=== PATIENT | female | born 1940 | race Caucasian/White ===

== ENCOUNTER 2017-11-14 08:01 | Emergency (ER) | payer MEDICARE ==
[2017-11-14 08:43] VITALS: BP 123/43
--- NOTE | 2017-11-14 09:04 | UC ---
Complaint Female HPI - HPI Summary HPI Summary: Pt c/o sudden onset of urinary frequency, urgency and dysuria X 3 days. Pt takes cephalexin 250 mg PO daily for UTI preventative. - History Of Current Complaint Chief Complaint: UCGU Stated Complaint: URINARY Time Seen by Provider: 11/14/17 08:33 Hx Obtained From: Patient ?: No Onset/Duration: Sudden Onset, Lasting Days, Still Present Timing: Constant Severity Initially: Mild Severity Currently: Mild Pain Intensity: 5 Character: Dull, Burning Aggravating Factor(s): Urination Alleviating Factor(s): Nothing Associated Signs And Symptoms: Positive: Negative - Risk Factors Ectopic Risk Factor: Negative Ovarian Torsion Risk Factor: Negative - Allergies/Home Medications Allergies/Adverse Reactions: Allergies Allergy/AdvReac Type Severity Reaction Status Date / Time No Known Allergies Allergy Verified 11/14/17 08:32 Home Medications: Home Medications oxyCODONE/Acetamin 10/325(NF) [Percocet 10/325 (NF)] 1 tab PO Q4H PRN 11/14/17 [ History Confirmed 11/14/17] PMH/Surg Hx/FS Hx/Imm Hx Previously Healthy: Yes Endocrine History: Dyslipidemia Cardiovascular History: Cardiac Disease GI/ History: Gastroesophageal Reflux Psychological History: Anxiety - Surgical History Surgical History: Yes Surgery Procedure, Year, and Place: LAMINECTOMY. HYSTERECTOMY. GALL BLADDER. FEET SURGERY - Family History Known Family History: Positive: Hypertension, Diabetes - Social History Occupation: Retired Lives: With Family Alcohol Use: None Substance Use Type: None Smoking Status (MU): Never Smoked Tobacco Have You Smoked in the Last Year: No Review of Systems Constitutional: Negative Skin: Negative Eyes: Negative ENT: Negative Respiratory: Negative Cardiovascular: Negative Gastrointestinal: Negative Genitourinary: Dysuria, Frequency, Urgency Motor: Negative Neurovascular: Negative Musculoskeletal: Negative Neurological: Negative Psychological: Negative Is Patient Immunocompromised?: No All Other Systems Reviewed And Are Negative: Yes Physical Exam Triage Information Reviewed: Yes Appearance: Well-Appearing Vital Signs: Initial Vital Signs Temp 98.7 F 11/14/17 08:35 Pulse 65 11/14/17 08:35 Resp 20 11/14/17 08:35 BP 123/43 11/14/17 08:35 Pulse Ox 94 11/14/17 08:35 Vital Signs Reviewed: Yes Eye Exam: Normal ENT: Positive: Hearing grossly normal Respiratory Exam: Normal Respiratory: Positive: No respiratory distress Cardiovascular Exam: Normal Abdominal Exam: Normal Abdomen Description: Positive: Nontender Musculoskeletal Exam: Normal Neurological Exam: Normal Psychological Exam: Normal Skin Exam: Normal Complaint Female Dx - Differential Dx/Diagnosis Differential Diagnosis/HQI/PQRI: Urinary Tract Infection, Other - pyelonephritis Provider Diagnoses: UTI Discharge - Sign-Out/Discharge Documenting (check all that apply): Discharge - Discharge Plan Condition: Stable Disposition: HOME Prescriptions: Ciprofloxacin TAB* [Cipro 500 MG TAB*] 500 mg PO Q12H #10 tab Patient Education Materials: Urinary Tract Infection in Women (ED) Referrals: Laxmi Ruffin MD [Primary Care Provider] - If Needed Arden Meza MD [Medical Doctor] - If Needed - Billing Disposition and Condition Condition: STABLE Disposition: HOME
== END 2017-11-14 09:15 | disposition home or self-care (01) ==
LOC: UCCORT 08:01
DX: N39.0 Urinary tract infection, site not specified (principal)
CPT/HCPCS: 81003; 87077; 87086; 87186; 99212; G0463

== ENCOUNTER 2018-01-20 09:26 | Day surgery (SDC) | payer MEDICARE ==
[~2018-01-20 09:26] MED LIST: Buffered Lidocaine 0.9% SYRIN* 5 ML/SYR SYRINGE INTRADERM ONE; Dexamethasone TAB* 6 MG PO ONE; Famotidine IV* 10 MG/ML 2 ML (20 mg) IV ONE; Ondansetron INJ* 2 MG/ML VIAL ONE
[2018-01-20] MEDS ORDERED: fentaNYL* 50 MCG/ML 2 ML VIAL (100 MCG VIAL) ONE (11:55)
[2018-01-20] MEDS ORDERED: Midazolam* 1 MG/ML 2 ML VIAL (2 MG) ONE (11:59)
[2018-01-20] MEDS ORDERED: Lidocaine 2% PF * 5 ML VIAL ONE (12:00)
[2018-01-20] MEDS ORDERED: Propofol* 10 MG/ML 20 ML BTL IV PUSH ONE (12:00)
[2018-01-20] MEDS ORDERED: Naloxone* 0.4 MG/ML 1 ML VIAL IV PRN (12:33)
[2018-01-20 13:16] VITALS: BP 117/57
--- NOTE | 2018-01-23 03:45 | PRO ---
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 INDICATION: This 77-year-old woman has sporadic episodes of vomiting, chiefly after dinner. They scare her, and her appetite has diminished and she had lost some weight. She is a very disorganized historian initially. There has been no fever, dysphagia, or change in her bowels which are about every other day. She had an ulcer diagnosed six years ago at [facility]. At the time, she was taking lots of anti-inflammatories. She has been on pantoprazole ever since, taking it appropriately in the morning. Her daughter, Cammy Cazares, attends most all of her medical appointments. She takes aspirin for prophylaxis and never having had a thromboembolic event. She is on Duragesic and Protonix and Zoloft. COPD is listed on her problem list , but she appears quite comfortable and at ease, and it appears chronically very mild. ENDOSCOPIST: Dr. Bui. MEDICATIONS: Propofol per Dr. Parker in the OR. FINDINGS: She is a healthy appearing older woman, in no over distress at this time. Her abdomen is soft. EGD: Larynx - symmetric, limited views. Esophagus - easily entered and the mucosa is normal in the upper, mid, and lower esophagus with the EG junction at 37 without any erosions or scarring. There is a lavya-oc-heddpk hiatal hernia but again no scarring. Stomach - the distal half of the stomach has significant erythema and punctate erosions. There is some wispy blood loss points but no active bleeding. There is a patchy post inflammatory scarring appearance. The pylorus is wide open and dysfunctional. Duodenum - the bulb has a patchy irregularity from past scarring. There are many very fine arterials. The apex of the bulb is strictured and the diagnostic scope will not go through. Through the scope dilator, 10 to 12 mm was passed and threaded readily into the distal duodenum. A 10 mm dilation did not result in the ability to pass the scope but in 11 mm, 45 second dilation did. The scope was passed down three times easily. The procedure terminated. IMPRESSION: 1. Jfvoz-ng-afeulrzd hiatal hernia. 2. Clinical GERD - probably a component of her vomiting. 3. Gastritis - aspirin 81 mg could be contributing though her daughter is asked to survey the house for antiinflammatories and bring all her bottles to her followup appointment, 02/08/18 at 10:45. 4. 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 5. Nausea and vomiting events - she could have had plugging events in the stricture and she is asked to cut and chew her food more carefully, and her daughter received a detailed explanation. Ranitidine 150 will be added after dinner. [id number]/[facility] #: [id number] MTDD
== END 2018-01-20 13:18 | disposition home or self-care (01) ==
LOC: OR 09:26
PROVIDERS: ATTEND Internal Medicine Gastroenterology
DX: K21.9 Gastro-esophageal reflux disease without esophagitis (principal); K44.9 Diaphragmatic hernia without obstruction or gangrene; K29.70 Gastritis, unspecified, without bleeding; K31.5 Obstruction of duodenum; R11.2 Nausea with vomiting, unspecified; R63.4 Abnormal weight loss; I10 Essential (primary) hypertension
CPT/HCPCS: 87077; 88305; 88342; J2250; J2704; J3010

== ENCOUNTER 2018-02-02 09:08 | Emergency (ER) | payer MEDICARE ==
[2018-02-02 09:25] VITALS: BP 112/50
--- NOTE | 2018-02-02 10:18 | UC ---
Respiratory Complaint HPI - HPI Summary HPI Summary: The patient is a 77-year-old female that presents here with a greater than one week history of cough. Her cough is productive at times. She denies any chest pain or shortness of breath. She denies any fever or chills. She has been anorexic. She denies any nausea vomiting or diarrhea. - History of Current Complaint Chief Complaint: UCRespiratory Stated Complaint: COUGH,COLD SXS Time Seen by Provider: 02/02/18 09:58 Hx Obtained From: Patient Onset/Duration: Gradual Onset, Lasting Weeks Timing: Constant Severity Initially: Mild Severity Currently: Moderate Pain Intensity: 0 Pain Scale Used: 0-10 Numeric Character: Cough: Productive Aggravating Factors: Nothing Alleviating Factors: Nothing Associated Signs And Symptoms: Positive: Negative - Allergies/Home Medications Allergies/Adverse Reactions: Allergies Allergy/AdvReac Type Severity Reaction Status Date / Time No Known Allergies Allergy Verified 02/02/18 09:19 Home Medications: Home Medications Diphenhydram/PE/Dm/Acetamin/GG [Mucinex Fast-Max Day-Nite Liq] 360 ml PO BEDTIME PRN 02/02/18 [History Confirmed 02/02/18] Dm/PE/Acetaminophen/Chlorphenr [[place] Plus Cold &] 1 cap PO BID PRN 02/02 [History Confirmed 02/02/18] Guaifenesin/Pseudo 600/60(NF) [Mucinex D 600/60 (NF)] 1 tab PO BID PRN 02/02/18 [History Confirmed 02/02/18] raNITIdine HCl [Ranitidine HCl] 150 mg PO DAILY 02/02/18 [History Confirmed 12/16] PMH/Surg Hx/FS Hx/Imm Hx Previously Healthy: Yes Endocrine History: Diabetes Cardiovascular History: Hypertension - Surgical History Surgical History: Yes Surgery Procedure, Year, and Place: LAMINECTOMY. HYSTERECTOMY. GALL BLADDER. FEET SURGERY - Family History Known Family History: Positive: Hypertension, Diabetes - Social History Alcohol Use: None Substance Use Type: None Smoking Status (MU): Never Smoked Tobacco Have You Smoked in the Last Year: No Review of Systems Constitutional: Negative Skin: Negative Eyes: Negative ENT: Negative Respiratory: Cough Cardiovascular: Negative Gastrointestinal: Other - anorexia Genitourinary: Negative Motor: Negative Neurovascular: Negative Musculoskeletal: Negative Neurological: Negative Psychological: Negative Is Patient Immunocompromised?: No All Other Systems Reviewed And Are Negative: Yes Physical Exam Triage Information Reviewed: Yes Appearance: Well-Appearing, No Pain Distress, Well-Nourished Vital Signs: Initial Vital Signs Temp 98.6 F 02/02/18 09:20 Pulse 72 02/02/18 09:20 Resp 18 02/02/18 09:20 BP 112/50 02/02/18 09:20 Pulse Ox 95 02/02/18 09:20 Vital Signs Reviewed: Yes Eyes: Positive: Conjunctiva Clear ENT: Positive: Uvula midline. Negative: Hearing grossly normal, Nasal congestion, Nasal drainage, Tonsillar swelling, Tonsillar exudate, Trismus, Muffled voice, Hoarse voice Dental Exam: Normal Neck: Positive: Supple, Nontender, No Lymphadenopathy Respiratory: Positive: No respiratory distress, No accessory muscle use, Rhonchi , Wheezing - wioth forced expiration Cardiovascular: Positive: RRR. Negative: Tachycardia, Bradycardia Musculoskeletal: Positive: ROM Intact, No Edema Neurological: Positive: Alert Psychological Exam: Normal Skin Exam: Normal UC Diagnostic Evaluation - Laboratory O2 Sat by Pulse Oximetry: 95 - normal/not hypoxic - Radiology Xray Interpretation: No Acute Changes Radiology Interpretation Completed By: Radiologist Respiratory Course/Dx - Differential Dx/Diagnosis Provider Diagnoses: acute bronchitis Discharge - Sign-Out/Discharge Documenting (check all that apply): Discharge/Admit/Transfer - Discharge Plan Condition: Stable Disposition: HOME Referrals: Laxmi Ruffin MD [Primary Care Provider] - - Billing Disposition and Condition Condition: STABLE Disposition: Home
--- NOTE | 2018-02-02 10:31 | RAD ---
HISTORY: cough > 1 week COMPARISONS: None VIEWS: 4: Frontal dual-energy and lateral views of the chest. FINDINGS: CARDIOMEDIASTINAL SILHOUETTE: The cardiomediastinal silhouette is normal. GISEL: The gisel are normal. PLEURA: The costophrenic angles are sharp. No pleural abnormalities are noted. LUNG PARENCHYMA: The lungs are clear. ABDOMEN: The upper abdomen is clear. There is no subphrenic gas. BONES AND SOFT TISSUES: Degenerative changes are noted OTHER: None. IMPRESSION: NO ACTIVE CARDIOPULMONARY DISEASE.
== END 2018-02-02 10:47 | disposition home or self-care (01) ==
LOC: UCCORT 09:08
DX: J20.9 Acute bronchitis, unspecified (principal); E11.9 Type 2 diabetes mellitus without complications; I10 Essential (primary) hypertension
CPT/HCPCS: 71046; 99212; G0463

== ENCOUNTER 2018-08-03 10:15 | Emergency (ER) | payer MEDICARE ==
[2018-08-03] MEDS ORDERED: Morphine VIAL* 4 MG/ML VIAL (1 ml vial) IV ONE (12:25)
[2018-08-03] MEDS ORDERED: Ondansetron INJ* 2 MG/ML VIAL IV ONE (12:25)
[2018-08-03] MEDS ORDERED: NS 0.9% 1000 ML* 2,000 ML IV ONE (12:25)
[2018-08-03 12:50] LABS: ABS Basophils 0 10^3/ul (0-0.2); ABS Eosinophils 0.1 10^3/ul (0-0.6); ABS Lymphocytes 0.8 10^3/ul (1.0-4.8); ABS Monocytes 0.4 10^3/ul (0-0.8); ABS Neutrophils 3.9 10^3/ul (1.5-7.7); ABS Nucleated RBC 0 10^3/ul; Hematocrit 37 % (35-47); Hemoglobin 12.5 g/dl (12.0-16.0); Lymphocyte % 15.1 %; Mean Corpuscular HGB Conc 34 g/dl (31-36); Mean Corpuscular Hemoglobin 32 pg (27-31); Mean Corpuscular Volume 93 fL (80-97); Mean Platelet Volume 7.1 fL (7.4-10.4); Nucleated Red Blood Cells % 0; Platelet Count 313 10^3/ul (150-450); Red Blood Count 3.94 10^6/ul (4.00-5.40); Red Cell Distribution Width 13 % (10.5-15); White Blood Count 5.2 10^3/ul (3.5-10.8)
[2018-08-03 13:14] LABS: Albumin 4.4 g/dL (3.2-5.2); Albumin/Globulin Ratio 1.7 (1-3); BUN/Creatinine Ratio 25.9 (8-20); C Reactive Protein 1.83 mg/L (<8.01); Calcium 9.9 mg/dL (8.6-10.3); EGFR Non-African American 68.2 (>60); Globulin 2.6 g/dL (2-4); Potassium 3.5 mmol/L (3.5-5.0); Total Bilirubin 0.4 mg/dL (0.2-1.0)
--- NOTE | 2018-08-03 13:37 | ED ---
GI/ HPI - HPI Summary HPI Summary: 77-year-old female presents with nausea and vomiting for the past couple days. She states that she is not able to keep anything down. She also states that she has not been able to keep pain medication down. She states they have changed her pain medication from fentayl to a different medication. She denies any fevers. Denies any bowel pain. He states that she has history of UTIs and may be having one. She denies any flank pain. She states that her chronic back pain is worse. She denies any fevers. No sore throat. No chest pain or distress breath. No bowel pain. - History of Current Complaint Chief Complaint: EDNauseaVomitDiarrh Time Seen by Provider: 08/03/18 12:17 Stated Complaint: VOMITING Pain Intensity: 9 - Allergy/Home Medications Allergies/Adverse Reactions: Allergies Allergy/AdvReac Type Severity Reaction Status Date / Time No Known Allergies Allergy Verified 02/02/18 09:19 Home Medications: Home Medications Atorvastatin* [Lipitor*] 20 mg PO BEDTIME 08/03/18 [History Confirmed 08/03/18] Calcium Carbonate/Vitamin D3 [Calcium 600 + Vit D Tablet] 1 tab PO DAILY [History Confirmed 08/03/18] Morphine Sulfate/Naltrexone [[place] 30-1.2 mg] 1 cap PO Q12HR 08/03/18 [History Confirmed 08/03/18] oxyCODONE/Acetamin 10/325(NF) [Percocet 10/325 (NF)] 1 tab PO TID PRN MDD 3 tabs 08/03/18 [History Confirmed 08/03/18] PMH/Surg Hx/FS Hx/Imm Hx Endocrine/Hematology History: Reports: Hx Diabetes - DIET CONTROLLED Cardiovascular History: Reports: Hx Hypertension - controlled with meds, Other Cardiovascular Problems/Disorders - high cholesterol GI History: Reports: Hx Gastroesophageal Reflux Disease, Hx Ulcer - 4 years ago - resolved Musculoskeletal History: Reports: Hx Arthritis, Hx Rheumatoid Arthritis Sensory History: Reports: Hx Cataracts - mild cataracts both, Hx Contacts or Glasses Denies: Hx Hearing Aid Opthamlomology History: Reports: Hx Cataracts - mild cataracts both, Hx Contacts or Glasses Psychiatric History: Reports: Hx Anxiety - Cancer History Hx Chemotherapy: No - Surgical History Surgery Procedure, Year, and Place: LAMINECTOMY. HYSTERECTOMY. GALL BLADDER. FEET SURGERY Hx Anesthesia Reactions: No Infectious Disease History: No Infectious Disease History: Denies: Traveled Outside the [place] in Last 30 Days - Family History Known Family History: Positive: Hypertension, Diabetes - Social History Alcohol Use: None Substance Use Type: Reports: Prescribed Smoking Status (MU): Never Smoked Tobacco Have You Smoked in the Last Year: No Review of Systems Negative: Fever Negative: Chest Pain Negative: Shortness Of Breath Positive: Vomiting, Nausea. Negative: Abdominal Pain, Diarrhea All Other Systems Reviewed And Are Negative: Yes Physical Exam Triage Information Reviewed: Yes Vital Signs On Initial Exam: Initial Vitals Temp Pulse Resp BP Pulse Ox 99.9 F 63 16 140/51 100 08/03/18 10:15 08/03/18 10:15 08/03/18 10:15 08/03/18 10:15 08/03/18 10:15 Vital Signs Reviewed: Yes Appearance: Positive: Well-Appearing Skin: Positive: Warm, Dry Head/Face: Positive: Normal Head/Face Inspection Eyes: Positive: Normal, EOMI, JOANNA, Conjunctiva Clear ENT: Positive: Normal ENT inspection, Pharynx normal, TMs normal Respiratory/Lung Sounds: Positive: Clear to Auscultation, Breath Sounds Present Cardiovascular: Positive: Normal, RRR Abdomen Description: Positive: Nontender, Soft Bowel Sounds: Positive: Present Musculoskeletal: Positive: Normal Neurological: Positive: Normal Psychiatric: Positive: Normal Diagnostics - Vital Signs Vital Signs Temp Pulse Resp BP Pulse Ox 08/03/18 13:08 16 08/03/18 11:45 99.1 F 66 16 118/53 96 08/03/18 10:15 99.9 F 63 16 140/51 100 - Laboratory Lab Results: Lab Results 08/03/18 08/03/18 08/03/18 Range/Units 12:39 12:39 12:39 WBC 5.2 (3.5-10.8) 10^3/ul RBC 3.94 L (4.00-5.40) 10^6/ul Hgb 12.5 (12.0-16.0) g/dl Hct 37 (35-47) % MCV 93 (80-97) fL MCH 32 H (27-31) pg MCHC 34 (31-36) g/dl RDW 13 (10.5-15) % Plt Count 313 (150-450) 10^3/ul MPV 7.1 L (7.4-10.4) fL Neut % (Auto) 74.8 % Lymph % (Auto) 15.1 % [place] % (Auto) 8.3 % Eos % (Auto) 1.0 % Baso % (Auto) 0.8 % Absolute Neuts (auto) 3.9 (1.5-7.7) 10^3/ul Absolute Lymphs (auto) 0.8 L (1.0-4.8) 10^3/ul Absolute Monos (auto) 0.4 (0-0.8) 10^3/ul Absolute Eos (auto) 0.1 (0-0.6) 10^3/ul Absolute Basos (auto) 0 (0-0.2) 10^3/ul Absolute Nucleated RBC 0 10^3/ul Nucleated RBC % 0 Sodium 139 (135-145) mmol/L Potassium 3.5 (3.5-5.0) mmol/L Chloride 101 (101-111) mmol/L Carbon Dioxide 30 (22-32) mmol/L Anion Gap 8 (2-11) mmol/L BUN 21 (6-24) mg/dL Creatinine 0.81 (0.51-0.95) mg/dL Est GFR ( Amer) 82.5 (>60) Est GFR (Non-Af Amer) 68.2 (>60) BUN/Creatinine Ratio 25.9 H (8-20) Glucose 105 H (70-100) mg/dL Lactic Acid 1.0 (0.5-2.0) mmol/L Calcium 9.9 (8.6-10.3) mg/dL Total Bilirubin 0.40 (0.2-1.0) mg/dL AST 35 (13-39) U/L ALT 28 (7-52) U/L Alkaline Phosphatase 77 (34-104) U/L C-Reactive Protein 1.83 (<8.01) mg/L Total Protein 7.0 (6.4-8.9) g/dL Albumin 4.4 (3.2-5.2) g/dL Globulin 2.6 (2-4) g/dL Albumin/Globulin Ratio 1.7 (1-3) Lipase 10 L (11.0-82.0) U/L Result Diagrams: 08/03/18 12:39 08/03/18 12:39 Lab Statement: Any lab studies that have been ordered have been reviewed, and results considered in the medical decision making process. Re-Evaluation - Re-Evaluation First Eval Re-Evaluation Time: 13:40 Change: Improved Comment: no longer naueous Second Eval Re-Evaluation Time: 15:22 Change: Improved Comment: pain improved GIGU Course/Dx - Course Course Of Treatment: 77-year-old female presents with nausea and vomiting for the past couple days. She states that she is not able to keep anything down. She also states that she has not been able to keep pain medication down. She states they have changed her pain medication from fentayl to a different medication. She denies any fevers. Denies any bowel pain. He states that she has history of UTIs and may be having one. She denies any flank pain. She states that her chronic back pain is worse. She denies any fevers. No sore throat. No chest pain or distress breath. No bowel pain. On exam nontender abdomen. Lungs clear to auscultation. Labs without acute abnormality. Gave pain medication and Zofran feeling better. Urine may be a UTI so we'll treat with Macrobid. Symptoms are she likely due to opiate withdrawal. We'll prescribe Zofran for such. Patient understands and agrees with plan. - Diagnoses Differential Diagnoses - Female: Urinary Tract Infection, Vomiting, Other - opioid withdrawal Provider Diagnoses: Vomiting, UTI (urinary tract infection) Discharge - Sign-Out/Discharge Documenting (check all that apply): Patient Departure - Discharge Plan Condition: Good Disposition: HOME Prescriptions: Nitrofurantoin Monohyd/M-Cryst [Macrobid 100 mg Capsule] 100 mg PO BID #13 cap Ondansetron ODT TAB* [Zofran 4 MG Odt TAB*] 4 mg PO Q6H PRN #16 tab.odt PRN Reason: Nausea Patient Education Materials: Acute Nausea and Vomiting (ED) Referrals: Laxmi Ruffin MD [Primary Care Provider] - Additional Instructions: Take Macrobid twice a day for 7days, first dose given in ED take zofran every 6 hours as needed for nausea Drink plenty of fluids Follow up with primary in 7 days Return to ED if develop any new or worsening symptoms - Billing Disposition and Condition Condition: GOOD Disposition: Home
[2018-08-03] MEDS ORDERED: HYDROmorphone INJ* 2 MG/ML CARPUJECT SYRINGE IV SLOW PU ONE ×2 (13:39→13:40)
[2018-08-03] MEDS ORDERED: HYDROmorphone INJ* 0.5 MG/0.5 ML SYRINGE ONE (13:46)
[2018-08-03] MEDS ORDERED: HYDROmorphone INJ* 0.5 MG/0.5 ML SYRINGE IV SLOW PU ONE (13:49)
[2018-08-03 15:06] LABS: Urine Appearance Clear; Urine Bacteria Absent (Absent); Urine Bilirubin Negative (Negative); Urine Blood 1+ (Negative); Urine Color Yellow; Urine Glucose Negative (Negative); Urine Ketones Negative (Negative); Urine Nitrite Negative (Negative); Urine Protein Negative (Negative); Urine Red Blood Cell 1+(3-5/hpf) (Absent); Urine Specific Gravity 1.014 (1.010-1.030); Urine Urobilinogen Negative (Negative); Urine White Blood Cell Trace(0-5/hpf) (Absent)
[2018-08-03] MEDS ORDERED: Nitrofurantoin Macrocrystals* 100 MG CAP PO ONE (15:23)
[2018-08-03] MEDS ORDERED: O ndansetron ODT 4MG 5TAB PRPK 4 MG PAK PO ONE (15:24)
[2018-08-03] MEDS ORDERED: Ondansetron ODT TAB* 4 MG ONE (15:34)
[2018-08-03] MEDS ORDERED: Ondansetron ODT TAB* 4 MG SL PRN (15:35)
[2018-08-03 15:45] VITALS: BP 138/80
== END 2018-08-03 15:45 | disposition home or self-care (01) ==
LOC: ED 10:15
DX: N39.0 Urinary tract infection, site not specified (principal); R11.2 Nausea with vomiting, unspecified
CPT/HCPCS: 36415; 76775; 80053; 81003; 81015; 83605; 83690; 85025; 86140; 87086; 96374; 96375; 96376; 99282; A9270-GY; J1170; J2270; J2405

== ENCOUNTER 2019-05-13 08:29 | Emergency (ER) | payer MEDICARE ==
--- OUTSIDE RECORDS SUMMARY | 2019-05-13 08:42 | XMS REPORT | Continuity of Care Document ---
:1940 External Reference #:[id number] Author Name Michael Kimball DO, MPH Address [address] [place] [address], [address] [place] [address] Care Team Providers Name Role Phone Lawrence Alvarez V. 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 [phone] Practitioner Problems Description No Information Available Social History Type Date Description Comments Sex Unknown ETOH Use Denies alcohol use Tobacco Use Start: Unknown Patient has never smoked Recreational Drug Use Denies Drug Use Smoking Status Reviewed: 03/30/19 Patient has never smoked Allergies, Adverse Reactions, Alerts Description No Known Drug Allergies Medications Active Medications SIG Qnty Indications Ordering Date Provider Neurontin si by mouth 90caps Michael Kimball, 02/27/2019 100mg Capsules three times a DO, MPH day as directed chronic pain patient Alpha-Lipoic Acid take one capsule 90caps Michael Kimball, 01/02/2019 200mg by mouth every 8 DO, MPH Capsules hours as directed chronic pain. Pentoxifylline ER 1 by mouth every 90tabs Michael Kimball, 10/25/2018 400mg 8 hours DO, MPH Tablets ER Lisinopril-Hydrochloro 1 by mouth every Unknown thiazide day 10-12.5mg Tablets Atorvastatin Calcium 1 by mouth every Unknown 20mg day Tablets Ropinirole HCL 1 by mouth three 120tabs Unknown 0.5mg times a day Tablets Multivitamin Adult 1 by mouth every Unknown day Tablets Calcium 600+D 1 by mouth daily Unknown Tablets Vitamin D3 Ultra 1 by mouth every Unknown Strength day 5000Unit Capsules Cranberry 1 by mouth every Unknown 450mg Capsules day Probiotic Colon 1 by mouth every Unknown Support day Capsules History Medications Lyrica si by mouth 60caps Michael Kimball DO, 01/02/2019 - 75mg every 12 hours as MPH 02/27/2019 Capsules directed chronic pain patient Immunizations Description No Information Available Vital Signs Date Vital Result Comment 03/30/2019 9:26am BP Systolic 120 mmHg BP Diastolic 78 mmHg Heart Rate 74 /min Respiratory Rate 18 /min Height 60 inches 5'0" Weight 138.00 lb Pain Level 4 Pain at this time. Pain Level With Medicine 3 on average with meds Pain Level Without Medicine 9 without meds BMI (Body Mass Index) 26.9 kg/m2 02/27/2019 10:04am BP Systolic 126 mmHg BP Diastolic 70 mmHg Heart Rate 74 /min Respiratory Rate 20 /min Height 60 inches 5'0" Weight 138.00 lb Pain Level 6 Pain at this time. Pain Level With Medicine 6 on average with meds Pain Level Without Medicine 9 without meds BMI (Body Mass Index) 26.9 kg/m2 Results Description No Information Available Procedures Date Code Description Status 02/27/2019 20428 Therapeutic, Prophylactic Or Diagnostic Injection Subq/Im Completed 01/02/2019 84780 Therapeutic, Prophylactic Or Diagnostic Injection Subq/Im Completed 11/07/2018 48373 Test Autonomic Nervous System, Sudomotor Completed 11/07/2018 17669 Test Autonomic Nervous System, Cardiovagal Innervation Completed 10/25/2018 67208 Brief Emotional/Behav Assessment W/ Scoring Doc Per Completed Standard Inst Medical Devices Description No Information Available Encounters Type Date Location Provider Dx Diagnosis Office Visit 02/27/2019 Main Office as Of Michael Kimball DO, G89.29 Other chronic pain 9:45a 09/01/13 MPH M15.0 Primary generalized (osteo)arthritis M25.512 Pain in left shoulder M25.511 Pain in right shoulder R53.83 Other fatigue Z79.891 jail (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891 jail (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 R53.83 Other fatigue Office Visit 12/06/2018 9:30a Main Office as Michael Kimball G89.29 Other chronic Of 09/01/13 DO, MPH pain M15.0 Primary generalized (osteo)arthritis M25.511 Pain in right shoulder M25.512 Pain in left shoulder M79.641 Pain in right hand M79.642 Pain in left hand M79.604 Pain in right leg M79.605 Pain in left leg Z79.891 jail (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 nervous system Office Visit 11/07/2018 9:45a Main Office as Michael Kimball G89.29 Other chronic Of 09/01/13 DO, MPH pain M15.0 Primary generalized (osteo)arthritis M79.604 Pain in right leg M79.605 Pain in left leg M25.511 Pain in right shoulder M25.512 Pain in left shoulder M79.641 Pain in right hand M79.642 Pain in left hand 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 nervous system 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 Office Visit 10/25/2018 9:00a Main Office as Michael Kimball G89.29 Other chronic Of 09/01/13 DO, MPH pain M15.0 Primary generalized (osteo)arthritis M79.604 Pain in right leg M79.605 Pain in left leg M25.511 Pain in right shoulder M25.512 Pain in left shoulder M79.641 Pain in right hand M79.642 Pain in left hand Z13.31 Encounter for screening for depression Z79.891 jail (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 K21.9 Gastro-esophageal reflux disease without esophagitis G25.81 Restless legs syndrome M54.5 Low back pain F41.1 Generalized anxiety disorder M79.671 Pain in right foot M79.672 Pain in left foot M25.572 Pain in left ankle and joints of left foot M25.571 Pain in right ankle and joints of right foot Assessments Date Code Description Provider 03/30/2019 G89.29 Other chronic pain Kimball, Michael, DO, MPH 03/30/2019 M15.0 Primary generalized (osteo)arthritis Kimball, Michael, DO, MPH 03/30/2019 M25.511 Pain in right shoulder Kimball, Michael, DO, MPH 03/30/2019 M25.512 Pain in left shoulder Kimball, Michael, DO, MPH 03/30/2019 M79.641 Pain in right hand Kimball, Michael, DO, MPH 03/30/2019 M79.642 Pain in left hand Kimball, Michael, DO, MPH 03/30/2019 Z79.891 jail (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 Kimball, Michael , DO, MPH 03/30/2019 R53.83 Other fatigue Kimball, Michael, DO, MPH 02/27/2019 G89.29 Other chronic pain Kimball, Michael, DO, MPH 02/27/2019 M15.0 Primary generalized (osteo)arthritis Kimball, Michael, DO, MPH 02/27/2019 M25.512 Pain in left shoulder Kimball, Michael, DO, MPH 02/27/2019 M25.511 Pain in right shoulder Kimball, Michael, DO, MPH 02/27/2019 R53.83 Other fatigue Kimball, Michael, DO, MPH 02/27/2019 Z79.891 jail (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 Kimball, Michael , DO, MPH 01/31/2019 M15.0 Primary generalized (osteo)arthritis Kimball, Michael, DO, MPH 01/31/2019 M79.605 Pain in left leg Kimball, Michael, DO, MPH 01/31/2019 M79.604 Pain in right leg Kimball, Michael, DO, MPH 01/31/2019 M79.642 Pain in left hand Kimball, Michael, DO, MPH 01/31/2019 M79.641 Pain in right hand Kimball, Michael, DO, MPH 01/31/2019 M25.512 Pain in left shoulder Kimball, Michael, DO, MPH 01/31/2019 M25.511 Pain in right shoulder Kimball, Michael, DO, MPH 01/31/2019 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 Kimball, Michael , DO, MPH 01/02/2019 G89.29 Other chronic pain Kimball, Michael, DO, MPH 01/02/2019 M15.0 Primary generalized (osteo)arthritis Kimball, Michael, DO, MPH 01/02/2019 M79.641 Pain in right hand Kimball, Michael, DO, MPH 01/02/2019 M79.642 Pain in left hand Kimball, Michael, DO, MPH 01/02/2019 M79.604 Pain in right leg Kimball, Michael, DO, MPH 01/02/2019 M79.605 Pain in left leg Kimball, Michael, DO, MPH 01/02/2019 Z79.891 jail (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 Kimball, Michael , DO, MPH 01/02/2019 R53.83 Other fatigue Kimball, Michael, DO, MPH 12/06/2018 G89.29 Other chronic pain Kimball, Michael, DO, MPH 12/06/2018 M15.0 Primary generalized (osteo)arthritis Kimball, Michael, DO, MPH 12/06/2018 M25.511 Pain in right shoulder Kimball, Michael, DO, MPH 12/06/2018 M25.512 Pain in left shoulder Kimball, Michael, DO, MPH 12/06/2018 M79.641 Pain in right hand Kimball, Michael, DO, MPH 12/06/2018 M79.642 Pain in left hand Kimball, Michael, DO, MPH 12/06/2018 M79.604 Pain in right leg Kimball, Michael, DO, MPH 12/06/2018 M79.605 Pain in left leg Kimball, Michael, DO, MPH 12/06/2018 Z79.891 jail (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 Kimball, Michael , DO, MPH 12/06/2018 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 Kimball, Michael, DO , MPH nervous system 11/07/2018 G89.29 Other chronic pain Kimball, Michael, DO, MPH 11/07/2018 M15.0 Primary generalized (osteo)arthritis Kimball, Michael, DO, MPH 11/07/2018 M79.604 Pain in right leg Kimball, Michael, DO, MPH 11/07/2018 M79.605 Pain in left leg Kimball, Michael, DO, MPH 11/07/2018 M25.511 Pain in right shoulder Kimball, Michael, DO, MPH 11/07/2018 M25.512 Pain in left shoulder Kimball, Michael, DO, MPH 11/07/2018 M79.641 Pain in right hand Kimball, Michael, DO, MPH 11/07/2018 M79.642 Pain in left hand Kimball, Michael, DO, MPH 11/07/2018 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 Kimball, Michael, DO , MPH nervous system 11/07/2018 Z79.891 jail (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 Kimball, Michael , DO, MPH 10/25/2018 G89.29 Other chronic pain Kimball, Michael, DO, MPH 10/25/2018 M15.0 Primary generalized (osteo)arthritis Kimball, Michael, DO, MPH 10/25/2018 M79.604 Pain in right leg Kimball, Michael, DO, MPH 10/25/2018 M79.605 Pain in left leg Kimball, Michael, DO, MPH 10/25/2018 M25.511 Pain in right shoulder Kimball, Michael, DO, MPH 10/25/2018 M25.512 Pain in left shoulder Kimball, Michael, DO, MPH 10/25/2018 M79.641 Pain in right hand Kimball, Michael, DO, MPH 10/25/2018 M79.642 Pain in left hand Kimball, Michael, DO, MPH 10/25/2018 Z13.31 Encounter for screening for depression Michael Kimball DO MPH 10/25/2018 Z79.891 jail (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 Michael Kimball DO MPH 10/25/2018 K21.9 Gastro-esophageal reflux disease without Michael Kimball DO MPH esophagitis 10/25/2018 G25.81 Restless legs syndrome Michael Kimball DO MPH 10/25/2018 M54.5 Low back pain Michael Kimball DO MPH 10/25/2018 F41.1 Generalized anxiety disorder Michael Kimball DO MPH 10/25/2018 M79.671 Pain in right foot iMchael Kimball DO MPH 10/25/2018 M79.672 Pain in left foot Michael Kimball DO MPH 10/25/2018 M25.572 Pain in left ankle and joints of left foot Michael Kimball DO MPH 10/25/2018 M25.571 Pain in right ankle and joints of right foot Michael Kimball DO MPH Plan of Treatment Future Appointment(s):04/27/2019 10:15 am - Michael Kimball DO MPH at Main Office as Of 09/01/1407 - Michael Kimball DO, MPHG89.29 Other chronic painComments:Chronic. Symptoms and complaints discussed and reviewed today. No significant changes in physical findings. Continue current medical pain management.M15.0 Primary generalized (osteo)arthritisComments:Chronic. Symptoms and complaints discussed and reviewed today. No significant changes in physical findings. Continue current medical pain management.M25.511 Pain in right shoulderComments:Chronic. Symptoms and complaints discussed and reviewed today. No significant changes in physical findings. Continue current medical pain management.M25.512 Pain in left shoulderComments:Chronic. Symptoms and complaints discussed and reviewed today. No significant changes in physical findings. Continue current medical pain management.M79.641 Pain in right handComments:Chronic. Symptoms and complaints discussed and reviewed today. No significant changes in physical findings. Continue current medical pain management.M79.642 Pain in left handComments:Chronic. Symptoms and complaints discussed and reviewed today. No significant changes in physical findings. Continue current medical pain management.Z79.891 jail (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New Labs:Urine Drug Screen, Ordered: 03/30/19Comments:Urine drug screen sample taken today to monitor opiate use and to monitor use of illicit substances.Will discuss results at next appointment.The following tests were ordered:6 AM, AMPH, BROOKLYNN, NAA, BUP, CARIS, COCM, COT, ETG, FENT, MCSHSG, OPI, OXY, PCP, TAPEN, XTSY, ZOLP. A urine drug test (UDT) was ordered for this patient and collected on site today. Creatinine has been ordered as well for specimen validity, not for kidney function. Preliminary UDT results are not final and should not be used to determine patient care or plan of treatment. Initially a qualitative immunoassay screen will be done. Any inconsistent or positive findings will be further tested with a more comprehensive quantitative confirmation LCMS study. It is part of the treatment process of prescribing controlled substances and is considered standard of care.R53.83 Other fatigueComments:Symptoms and complaints discussed and reviewed today. No significant changes in physical findings. Continue current medical pain management. B12 injection administered after patient evaluated. 1ml IM for fatigue. (See Consent for injection-B12 document for lot number and expiration date.)AllComments:Continue current medical pain management; injection therapy, osteopathic manipulation, PT / modalities, and consults as needed to manage chronic pain.Non - opioid pain management discussed and optionsdiscussed.Side effects discussed; anticipatory guidance given. Patient clearly understand and agree with all medical treatments and suggestions. All medicines prescribed are adequate and appropriate for this patient's complaint of pain, medical history, physical, and personal goals.Goals of Treatment are to provide adequate and appropriate multidisciplinary medical pain management to increase/ maintain patient's quality of life and functionality while maintaining satisfactory side effect profile andminimizing supervisor intermediates end-organ damage. Importance of regular nutrition throughout the day discussed.Activity as toleratedContinue with PCP Functional Status Description No Information Available Mental Status Description No Information Available Referrals Refer to Reason for Referral Status Appt Date Irving Santos M.D. Please evaluate pain in her bilateral Scheduled 11/21/2018 [address]. [address] [place] [address] [phone]
--- OUTSIDE RECORDS SUMMARY | 2019-05-13 08:42 | XMS REPORT | Continuity of Care Document ---
:1940 External Reference #:[id number] Author Name Michael Kimball DO, MPH Address [address] [place] [address], [address] [place] [address] Care Team Providers Name Role Phone Lawrence Alvarez V. UNIT MANAGER [employer]IENCE [employer]ORES - Nurse Care Team Information Management Internship [phone] Practitioner Problems Description No Information Available Social History Type Date Description Comments Sex Unknown ETOH Use Denies alcohol use Tobacco Use Start: Unknown Patient has never smoked Recreational Drug Use Denies Drug Use Smoking Status Reviewed: 05/01/19 Patient has never smoked Allergies, Adverse Reactions, [...] by mouth every Unknown Support day Capsules Milk Thistle Unknown 140mg Capsules History Medications Lyrica si by mouth 60caps Michael Kimball DO, 01/02/2019 - 75mg every 12 hours as MPH 02/27/2019 Capsules directed chronic pain patient Immunizations Description No Information Available Vital Signs Date Vital Result Comment 05/01/2019 10:09am BP Systolic 120 mmHg BP Diastolic 70 mmHg Heart Rate 74 /min Respiratory Rate 20 /min Height 60 inches 5'0" Weight 136.00 lb Pain Level 4 Pain at this time. Pain Level With Medicine 3 on average with meds Pain Level Without Medicine 9 without meds BMI (Body Mass Index) 26.6 kg/m2 03/30/2019 9:26am BP Systolic 120 mmHg BP Diastolic 78 mmHg Heart Rate 74 /min Respiratory Rate 18 /min Height 60 inches 5'0" Weight 138.00 lb Pain Level 4 Pain at this time. Pain Level With Medicine 3 on average with meds Pain Level Without Medicine 9 without meds BMI (Body Mass Index) 26.9 kg/m2 Procedures Date Code Description Status 03/30/2019 33261 Therapeutic, Prophylactic Or Diagnostic Injection Subq/Im Completed 02/27/2019 58387 Therapeutic, Prophylactic Or Diagnostic Injection Subq/Im Completed 01/02/2019 03131 Therapeutic, Prophylactic Or Diagnostic Injection Subq/Im Completed 11/07/2018 39932 Test Autonomic Nervous System, Sudomotor Completed 11/07/2018 88945 Test Autonomic Nervous System, Cardiovagal Innervation Completed Medical Devices Description No Information Available Encounters Type Date Location Provider Dx Diagnosis Office Visit 03/30/2019 Main Office as Of Michael Kimball DO G89.29 Other chronic pain 9:30a 09/01/13 MPH M15.0 Primary generalized (osteo)arthritis M25.511 Pain in right shoulder M25.512 Pain in left shoulder M79.641 Pain in right hand M79.642 Pain in left hand 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 R53.83 Other fatigue Office Visit 02/27/2019 9:45a Main Office as Michael Kimball G89.29 Other chronic Of 09/01/13 , MPH pain M15.0 Primary generalized (osteo)arthritis M25.512 Pain in left shoulder M25.511 Pain in right shoulder R53.83 Other fatigue 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 Office Visit 01/31/2019 9:45a Main Office Michael Kimball, M15.0 Primary generalized as Of 09/01/13 DO, MPH (osteo)arthritis M79.605 Pain in left leg M79.604 Pain in right leg M79.642 Pain in left hand M79.641 Pain in right hand M25.512 Pain in left shoulder M25.511 Pain in right shoulder Z79.891 longterm (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 Office Visit 01/02/2019 9:15a Main Office as Michael Kimball, G89.29 Other chronic Of 09/01/13 DO, MPH pain M15.0 Primary generalized (osteo)arthritis M79.641 Pain in right hand M79.642 Pain in left hand M79.604 Pain in right leg M79.605 Pain in left leg Z79.891 longterm (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 R53.83 Other fatigue Office Visit 12/06/2018 9:30a Main Office as Michael Kimball, G89.29 Other chronic Of 09/01/13 DO, MPH pain M15.0 Primary generalized (osteo)arthritis M25.511 Pain in right shoulder M25.512 Pain in left shoulder M79.641 Pain in right hand M79.642 Pain in left hand M79.604 Pain in right leg M79.605 Pain in left leg 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 nervous system Office Visit 11/07/2018 9:45a Main Office as Michael Kimball, G89.29 Other chronic Of 09/01/13 DO, MPH pain M15.0 Primary generalized (osteo)arthritis M79.604 Pain in right leg M79.605 Pain in left leg M25.511 Pain in right shoulder M25.512 Pain in left shoulder M79.641 Pain in right hand M79.642 Pain in left hand 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 nervous system Z79.891 longterm (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 Assessments Date Code Description Provider 05/01/2019 M15.0 Primary generalized (osteo)arthritis Kimball, Michael, DO, MPH 05/01/2019 M79.641 Pain in right hand Kimball, Michael, DO, MPH 05/01/2019 M79.642 Pain in left hand Kimball, Michael, DO, MPH 05/01/2019 M25.512 Pain in left shoulder Kimball, Michael, DO, MPH 05/01/2019 M25.511 Pain in right shoulder Kimball, Michael, DO, MPH 05/01/2019 Z79.891 longterm (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 Kimball, Michael , DO, MPH 05/01/2019 R53.83 Other fatigue Kimball, Michael, DO, MPH 03/30/2019 G89.29 Other chronic pain Kimball, Michael, DO, MPH 03/30/2019 M15.0 Primary generalized (osteo)arthritis Kimball, Michael, DO, MPH 03/30/2019 M25.511 Pain in right shoulder Kimball, Michael, DO, MPH 03/30/2019 M25.512 Pain in left shoulder Kimball, Michael, DO, MPH 03/30/2019 M79.641 Pain in right hand Kimball, Michael, DO, MPH 03/30/2019 M79.642 Pain in left hand Kimball, Michael, DO, MPH 03/30/2019 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 Kimball, Michael [...] fatigue Kimball, Michael, DO, MPH 02/27/2019 Z79.891 longterm (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 Kimball, Michael [...] shoulder Kimball, Michael, DO, MPH 01/31/2019 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 Kimball, Michael [...] leg Kimball, Michael, DO, MPH 01/02/2019 Z79.891 longterm (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 Kimball, Michael [...] leg Kimball, Michael, DO, MPH 12/06/2018 Z79.891 longterm (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 KimballWilliam chandraph , DO, MPH 12/06/2018 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 Kimball, Michael, DO , MPH nervous system 11/07/2018 G89.29 Other chronic pain KimballMichael chandra, DO, MPH 11/07/2018 M15.0 Primary generalized (osteo)arthritis KimballMichael chandra DO, MPH 11/07/2018 M79.604 Pain in right [...] 11/07/2018 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 Michael Kimball DO , MPH nervous system 11/07/2018 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 Symptoms and complaints discussed and reviewed today. [...] physical findings. Continue current medical pain management.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New Labs:Urine Drug Screen, Ordered: 05/01/19Comments:Urine drug screen sample taken today to monitor [...] while maintaining satisfactory side effect profile andminimizing daycare worker end-organ damage. Importance of regular nutrition throughout the day discussed.Activity as toleratedContinue with PCP Functional Status Description No Information Available Mental Status Description No Information Available Referrals Description No Information Available
--- OUTSIDE RECORDS SUMMARY | 2019-05-13 08:42 | XMS REPORT | Continuity of Care Document ---
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 [phone] Problems Active Problems Provider Date Essential hypertension Alfreda Jerry PA-C Onset: 10/14/2017 Weight decreased Alfreda Jerry PA-C Onset: 12/27/2017 Gastroesophageal reflux disease Alfreda Jerry PA-C Onset: 12/27/2017 Slow transit constipation Alfreda Jerry PA-C Onset: 10/11/2017 Nausea and vomiting Alfreda Jerry PA-C Onset: 10/11/2017 Social History Type Date Description Comments Sex Unknown Tobacco Use Start: Unknown Patient has never smoked Smoking Status Reviewed: 04/17/19 Patient has never smoked Allergies, Adverse Reactions, Alerts Description No Known Drug Allergies Medications Active Medications SIG Qnty Indications Ordering Date Provider Pantoprazole Sodium Take 1 Tablet 180tabs R11.2 Reed Ned, 09/28/2018 40mg By Mouth Twice DO Tablets DR Daily(30 Minutes Before Meal)- Maximum Daily Dose Is 2 Tablets Atorvastatin Calcium take one tablet 90tabs Laxmi Ruffin, 06/20/2016 40mg by mouth at MD Tablets bedtime Ondansetron HCL 1 by mouth 30tabs Laxmi Ruffin, 11/14/2015 8mg Tablets three times a MD day as needed nausea Oxycodone-Acetaminophen 1 by mouth 150tabs Laxmi Ruffin, 01/22/2015 every 4h as MD 10-325mg Tablets needed for mod. to severe pain Reference #: [id number] Clonazepam 1 by mouth 60tabs Laxmi Ruffin, 0.5mg Tablets 2x/day as MD needed for restless legs or anxiety Reference #: [id number] Zolpidem Tartrate 1 by mouth 30tabs Laxmi Ruffin, 10mg Tablets every night as MD needed for insomnia erence #: [id number] Polyethylene Glycol 3350 use 17 grams in 527units Laxmi Ruffin, 3350NF fluid at MD Powder bedtime Hydrochlorothiazide Take One Tablet 90tabs Laxmi Ruffin, 25mg By Mouth Every MD Tablets Morning Lisinopril Take One Tablet 90tabs Laxmi Ruffin, 5mg Tablets By Mouth Every MD Day Sertraline HCL Take One Tablet 90tabs Laxmi Ruffin, 100mg Tablets By Mouth Every MD Day Vitamin D-400 Unknown 400Unit Tablets Senior Vitamin Unknown Embeda 1 by mouth Unknown 30-1.2mg Capsules ER twice a day Immunizations Description No Information Available Vital Signs Date Vital Result Comment 04/17/2019 9:30am Height 59 inches 4'11" Weight 127.00 lb BP Systolic 135 mmHg BP Diastolic 65 mmHg Heart Rate 66 /min BMI (Body Mass Index) 25.6 kg/m2 11/16/2018 9:56am Height 59 inches 4'11" Weight 125.00 lb BP Systolic 122 mmHg BP Diastolic 63 mmHg Heart Rate 62 /min BMI (Body Mass Index) 25.2 kg/m2 Results Description No Information Available Procedures Description No Information Available Medical Devices Description No Information Available Encounters Type Date Location Provider Dx Diagnosis Office Visit 11/16/2018 [facility] Alfreda Loera K21.9 [facility] Benji Jerry PA-C reflux disease without esophagitis R11.2 Nausea with vomiting, unspecified Assessments Date Code Description Provider 04/17/2019 R11.2 Nausea with vomiting, unspecified DARYN Owusu 11/16/2018 K21.9 Gastro-esophageal reflux disease without Alfreda Jerry PA-C esophagitis 11/16/2018 R11.2 Nausea with vomiting, unspecified DARYN Owusu Plan of Treatment No Information Available Functional Status Description No Information Available Mental Status Description No Information Available Referrals Description No Information Available
[2019-05-13 08:51] VITALS: BP 116/57
--- NOTE | 2019-05-13 09:14 | UC ---
Complaint Female HPI - HPI Summary HPI Summary: Pt presents with c/o sudden onset urinary symptoms of frequency, urgency, dysuria X 4 days. Pt also states that she has been feeling like she is a little "foggy". - History Of Current Complaint Stated Complaint: UTI SYMPTOMS Time Seen by Provider: 05/13/19 08:33 Hx Obtained From: Patient ?: No Onset/Duration: Sudden Onset, Lasting Days, Still Present Timing: Constant Severity Initially: Mild Severity Currently: Mild Pain Intensity: 5 Character: Dull, Burning Aggravating Factor(s): Urination Associated Signs And Symptoms: Positive: Back Pain - Risk Factors Ectopic Risk Factor: Negative Ovarian Torsion Risk Factor: Negative - Allergies/Home Medications Allergies/Adverse Reactions: Allergies Allergy/AdvReac Type Severity Reaction Status Date / Time No Known Allergies Allergy Verified 05/13/19 08:45 Home Medications: Home Medications Morphine Sulfate/Naltrexone [Embeda ER 30-1.2 mg Capsule] 1 cap PO Q12H [History Confirmed 05/13/19] PMH/Surg Hx/FS Hx/Imm Hx Previously Healthy: Yes Endocrine History: Dyslipidemia Cardiovascular History: Cardiac Disease, Hypertension - Surgical History Surgical History: Yes Surgery Procedure, Year, and Place: LAMINECTOMY. HYSTERECTOMY. GALL BLADDER. FEET SURGERY - Family History Known Family History: Positive: Hypertension, Diabetes - Social History Occupation: Retired Lives: Alone Alcohol Use: None Substance Use Type: Prescribed Smoking Status (MU): Never Smoked Tobacco Have You Smoked in the Last Year: No Review of Systems All Other Systems Reviewed And Are Negative: Yes Constitutional: Positive: Negative Skin: Positive: Negative Eyes: Positive: Negative ENT: Positive: Negative Respiratory: Positive: Negative Cardiovascular: Positive: Negative Gastrointestinal: Positive: Negative Genitourinary: Positive: Dysuria, Frequency, Urgency Motor: Positive: Negative Neurovascular: Positive: Negative Musculoskeletal: Positive: Negative Neurological: Positive: Negative Psychological: Positive: Negative Is Patient Immunocompromised?: No Physical Exam Triage Information Reviewed: Yes Appearance: Well-Appearing Vital Signs: Initial Vital Signs Temp 98.6 F 05/13/19 08:42 Pulse 64 05/13/19 08:42 Resp 16 05/13/19 08:42 BP 116/57 05/13/19 08:42 Pulse Ox 95 05/13/19 08:42 Vital Signs Reviewed: Yes Eye Exam: Normal ENT: Positive: Hearing grossly normal Dental Exam: Normal Neck exam: Normal Respiratory Exam: Normal Respiratory: Positive: Normal breath sounds Cardiovascular Exam: Normal Abdominal Exam: Normal Abdomen Description: Positive: Nontender Musculoskeletal Exam: Normal Neurological Exam: Normal Psychological Exam: Normal Skin Exam: Normal Complaint Female Dx - Differential Dx/Diagnosis Differential Diagnosis/HQI/PQRI: Urinary Tract Infection Provider Diagnosis: UTI (urinary tract infection) Discharge ED - Sign-Out/Discharge Documenting (check all that apply): Patient Departure All imaging exams completed and their final reports reviewed: No Studies - Discharge Plan Condition: Stable Disposition: HOME Prescriptions: Nitrofurantoin Monohyd/M-Cryst [Macrobid 100 mg Capsule] 100 mg PO Q12H #14 cap Patient Education Materials: Urinary Tract Infection in Women (ED) Referrals: Laxmi Ruffin MD [Primary Care Provider] - If Needed - Billing Disposition and Condition Condition: STABLE Disposition: Home
== END 2019-05-13 09:19 | disposition home or self-care (01) ==
LOC: UCCORT 08:29
DX: N39.0 Urinary tract infection, site not specified (principal); I10 Essential (primary) hypertension
CPT/HCPCS: 81003; 87077; 87086; 87186; 99212; G0463

== ENCOUNTER 2019-08-09 08:29 | Inpatient (IN) | payer MEDICARE ==
--- NOTE | 2019-08-09 08:37 | ED ---
Abdominal Pain/Female - HPI Summary HPI Summary: 78-year-old female presents to the emergency department today complaining of 9 out of 10 during pain which she states she's had for months and has been diagnosed with an inguinal hernia. Patient states the last 2 weeks she is no longer been able to reduce her inguinal hernia and it has grown in size. Patient also states she's had increase in pain and distention of her abdomen as well as constipation x 1 month, last bowel movement was 3 days ago. Patient states she has an appointment with Dr. Hamm is to address her hernia however she came to the emergency department stay as she was in too much pain to wait. Patient has taken oral morphine and oxycodone prior to arrival for her chronic pain. Patient denies nausea, vomiting, fever, chest pain, shortness of breath, rash. Family history and social history noncontributory. - History of Current Complaint Chief Complaint: EDAbdPain Stated Complaint: LOWER ABD PAIN PER PT DAUGHTER Time Seen by Provider: 08/09/19 08:36 Hx Obtained From: Patient Onset/Duration: Gradual Onset Timing: Constant Severity Initially: Severe Severity Currently: Severe Pain Intensity: 10 Pain Scale Used: 0-10 Numeric Location: Suprapubic Allergies/Adverse Reactions: Allergies Allergy/AdvReac Type Severity Reaction Status Date / Time No Known Allergies Allergy Verified 08/09/19 09:01 Home Medications: Home Medications Bisacodyl EC TAB* [Dulcolax EC TAB*] 5 mg PO DAILY PRN 08/09/19 [History Confirmed 08/09/19] Morphine Sulfate [Morphabond ER] 30 mg PO BID 08/09/19 [History Confirmed ] PMH/Surg Hx/FS Hx/Imm Hx Endocrine/Hematology History: Reports: Hx Diabetes - Diet Controlled Cardiovascular History: Reports: Hx Hypertension, Other Cardiovascular Problems/ Disorders - high cholesterol GI History: Reports: Hx Gastroesophageal Reflux Disease, Hx Ulcer - 2013 Musculoskeletal History: Reports: Hx Arthritis, Hx Rheumatoid Arthritis Sensory History: Reports: Hx Cataracts - mild cataracts both, Hx Contacts or Glasses Denies: Hx Hearing Aid Opthamlomology History: Reports: Hx Cataracts - mild cataracts both, Hx Contacts or Glasses Psychiatric History: Reports: Hx Anxiety - Cancer History Hx Chemotherapy: No - Surgical History Surgery Procedure, Year, and Place: LAMINECTOMY. HYSTERECTOMY. GALL BLADDER. FEET SURGERY Hx Anesthesia Reactions: No Infectious Disease History: No Infectious Disease History: Denies: Traveled Outside the [place] in Last 30 Days - Family History Known Family History: Positive: Hypertension, Diabetes - Social History Alcohol Use: None Substance Use Type: Reports: Prescribed Smoking Status (MU): Never Smoked Tobacco Have You Smoked in the Last Year: No Review of Systems Constitutional: Negative Eyes: Negative ENT: Negative Cardiovascular: Negative Respiratory: Negative Positive: Abdominal Pain. Negative: Vomiting, Diarrhea, Nausea Genitourinary: Negative Musculoskeletal: Negative Skin: Negative Neurological: Negative Psychological: Normal All Other Systems Reviewed And Are Negative: Yes Physical Exam - Summary Physical Exam Summary: Inspection reveals a Large mildly erythematous left inguinal hernia. Auscultation reveals normoactive bowel sounds. Palpation of the abdomen illicits mild diffuse tenderness. Inguinal hernia is unable to be reduced. palpation on the hernia is exquisitely painful. Triage Information Reviewed: Yes Vital Signs On Initial Exam: Initial Vitals Temp Pulse Resp BP Pulse Ox 98.7 F 78 18 141/65 92 08/09/19 08:29 08/09/19 08:29 08/09/19 08:29 08/09/19 08:29 08/09/19 08:29 Vital Signs Reviewed: Yes Appearance: Positive: Well-Appearing, No Pain Distress, Well-Nourished Skin: Positive: Warm, Skin Color Reflects Adequate Perfusion Eyes: Positive: EOMI, JOANNA ENT: Positive: Hearing grossly normal Respiratory/Lung Sounds: Positive: Clear to Auscultation, Breath Sounds Present Cardiovascular: Positive: RRR, S1, S2 Abdomen Description: Positive: Soft, Hernia @ - Left inguinal. Negative: Distended, Guarding Bowel Sounds: Positive: Present Musculoskeletal: Positive: Strength/ROM Intact Neurological: Positive: Sensory/Motor Intact, Alert, Oriented to Person Place, Time, Normal Gait, Facial Symmetry, Speech Normal Psychiatric: Positive: Normal, Affect/Mood Appropriate AVPU Assessment: Alert Procedures - Sedation Patient Received Moderate/Deep Sedation with Procedure: No Diagnostics - Vital Signs Vital Signs Temp Pulse Resp BP Pulse Ox 08/09/19 08:29 98.7 F 78 18 141/65 92 - Laboratory Result Diagrams: 08/09/19 09:06 08/09/19 09:06 Lab Statement: Any lab studies that have been ordered have been reviewed, and results considered in the medical decision making process. Abdominal Pain Fem Course/Dx - Course Course Of Treatment: Patient was evaluated in the emergency department today for a possible strangulated hernia. Patient was seen and examined her vitals are stable and she is afebrile. Laboratory studies show a white count 11.0 indicating a leukocytosis. There are no significant electrolyte abnormalities. BUN is elevated at 35 likely due to dehydration. No rise in creatinine. Lactic acid is 1.0 not suggestive of bowel ischemia from strangulated hernia. General surgery, Dr. Diane was consulted at 1001 and was made aware of the patient, who suggested geting an EKG in the event of surgery being required. EKG shows normal sinus rhythm at a rate of 69 bpm. There is evidence of APCs. No evidence of STEMI. There is T-wave inversion in leads 3. Normal axis. Pt given 50 mcg fentanyl and reduction was attempted by ER staff and surgical staff without success at 1051. Surgical staff felt pateint needed reduction in the OR. CT scan of the abdomen and pelvis shows: 1. THERE IS LARGE AMOUNT OF STOOL THROUGHOUT THE COLON EXTENDING TO THE LEVEL OF A LEFT INGUINAL HERNIA CONTAINING PORTIONS OF SIGMOID COLON, CONCERNING FOR COLONIC OBSTRUCTION AT THIS POINT. 2. THERE IS EXTENSIVE BILIARY DILATATION EXTENDING TO THE LEVEL OF THE AMPULLA. THERE IS NO APPRECIABLE PANCREATIC MASS OR PANCREATIC DUCTAL DILATATION. 3. THERE IS A COMPLEX CYSTIC LESION OF THE RIGHT INTERNAL OBTURATOR MUSCLE OF UNCLEAR ETIOLOGY. RECOMMEND CONSIDERATION FURTHER EVALUATION WITH CONTRAST-ENHANCED MRI OF THE PELVIS IN THE NONACUTE SETTING. 4. CYSTOCELE. 5. ATHEROSCLEROSIS. Surgery notified. Pt brought to OR for reduction of incarcerated left inguinal hernia with bowel obstruction. - Diagnoses Differential Diagnosis: Positive: Bowel Obstruction, Constipation, Other - hernia, incarcerated hernia, strangulated hernia Provider Diagnoses: Incarcerated left inguinal hernia - Provider Notifications Discussed Care Of Patient With: Jose Alfredo Diane - Admit for surgery of left incarcerated inguinal hernia. Discharge ED - Sign-Out/Discharge Documenting (check all that apply): Patient Departure - Discharge Plan Condition: Stable Disposition: ADMITTED TO [facility] Referrals: Laxmi Ruffin MD [Primary Care Provider] - - Billing Disposition and Condition Condition: STABLE Disposition: Admitted to [facility] - Attestation Statements Provider Attestation: I have seen the patient with the LETI and agree with the plan and documentation below except as noted: 78-year-old female with history of left inguinal hernia presents with worsening pain. Exam w tender and erythematous swelling over the left side pubis symphysis/inguinal now. Concern for incarcerated hernia. Surgery consult, CT ordered Mauri Sneed MD
[2019-08-09 09:17] LABS: ABS Basophils 0.1 10^3/ul (0-0.2); ABS Eosinophils 0.1 10^3/ul (0-0.6); ABS Lymphocytes 0.6 10^3/ul (1.0-4.8); ABS Monocytes 0.7 10^3/ul (0-0.8); ABS Neutrophils 9.5 10^3/ul (1.5-7.7); Hematocrit 35 % (35-47); Lymphocyte % 5.4 %; Mean Corpuscular HGB Conc 34 g/dL (31-36); Mean Corpuscular Hemoglobin 31 pg (27-31); Mean Corpuscular Volume 90 fL (80-97); Mean Platelet Volume 6.4 fL (7.4-10.4); Platelet Count 586 10^3/uL (150-450); Red Blood Count 3.88 10^6 /uL (3.70-4.87); Red Cell Distribution Width 14 % (10-15)
[2019-08-09 09:27] LABS: Activated Partial Thrombo Time 36.6 seconds (26.0-38.0); INR 1.03 (0.82-1.09)
[2019-08-09 09:36] LABS: Albumin/Globulin Ratio 1.3 (1-3); BUN/Creatinine Ratio 41.7 (8-20); Calcium 9.2 mg/dL (8.6-10.3); EGFR African American 78.9 (>60); EGFR Non-African American 65.2 (>60); Globulin 3.1 g/dL (2-4); Potassium 4.1 mmol/L (3.5-5.0); Total Bilirubin 0.6 mg/dL (0.2-1.0); Total Protein 7.1 g/dL (6.4-8.9)
[2019-08-09] MEDS ORDERED: Iodixanol* (CONTRAST) 320 MG/ML 100 ML SDV IV ONE (10:00)
--- OUTSIDE RECORDS SUMMARY | 2019-08-09 10:28 | XMS REPORT | Continuity of Care Document ---
:1940 External Reference #:[id number] Author Name Lawrence Alvarez FNP Address [address] [place] [id number] Care Team Providers Name Role Phone Brant Mercado MD Care Team Information Wetland Scientist [phone] Lawrence Alvarez DIRECTOR OF RESEARCH - Nurse Care Team Information Wetland Scientist Practitioner Problems Active Problems Provider Date Hyperlipidemia Sallie Prince M.D. Onset: 04/08/2011 Benign essential hypertension Sallie Prince M.D. Onset: 04/08/2011 [facility] Onset: 06/06/2014 Restless legs Lawrence Alvarez FNP Onset: 02/20/2014 History of malignant neoplasm of bladder Idania Pastor M.D. Onset: 2016 Retention of urine Idania Pastor M.D. Onset: 03/24/2017 Increased frequency of urination Idania Pastor M.D. Onset: 05/26/2017 Midline cystocele Idania Pastor M.D. Onset: 05/26/2017 Mixed urinary incontinence Idania Pastor M.D. Onset: 05/26/2017 Urinary tract infectious disease Idania Pastor M.D. 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 Tablets needed pain, mdd=3g Lisinopril-Hydrochloro take two tablets 180tabs I10 Clune, 05/12/2015 thiazide by mouth every Jenniferleigh, 20-12.5mg day TEAM AUTOMOBILE ASSEMBLER Tablets Complete Multi-Vitamin Unknown Calcium 1 PO bid Prince, Carbonate-Vitamin D MD Sallie [phone] Tablets Atorvastatin Calcium take one tablet 90tabs Laxmi Ruffin, 20mg by mouth every MD Tablets day Probitoic Colon 1 cap once a day Unknown Support Pentoxifylline ER Kimball, Michael, 400mg MD Tablets ER Gabapentin 1- 3 times aday Unknown 100mg Capsules Vitamin D3 Maximum 1 by mouth every Unknown Strength day 125mcg (5000 Ut) Capsules History Medications Sulfamethoxazole/Trimethoprim DS 1 by mouth 1tabs Darby, 03/02/2019 - 800-160mg once given in [facility] 03/03/2019 Tablets office for procedurE Sulfamethoxazole/Trimethoprim DS 1 by mouth 1tabs Darby, 02/15/2019 - 800-160mg once given in [facility] 02/16/2019 Tablets office for procedure. Sulfamethoxazole/Trimethoprim DS 1 by mouth 14tabs Darby, 02/15/2019 - 800-160mg once given in [facility] 03/02/2019 Tablets office for procedure Sulfamethoxazole/Trimethoprim DS 1 by mouth 14tabs Darby, 02/15/2019 - 800-160mg twice a day [facility] 03/02/2019 Tablets Medications Administered in Office Medication SIG Qnty Indications Ordering Provider Date Depomedrol 40mg/1cc Garth Box MD, 06/11/2010 (methylprednisolone acetate) FACS Injection Depomedrol 40mg/1cc Mirta Cordero MD 07/21/2009 (methylprednisolone acetate) Injection Depomedrol 40mg/1cc Mirta Cordero MD 03/05/2009 (methylprednisolone acetate) Injection Depomedrol 40mg/1cc Mirta Cordero MD 06/13/2008 (methylprednisolone acetate) Injection Depomedrol 40mg/1cc Mirta Cordero MD 06/13/2008 (methylprednisolone acetate) Injection Depomedrol 40mg/1cc Mirta Cordero MD 12/29/2007 (methylprednisolone acetate) Injection Immunizations CPT Code Status Date Vaccine Lot # [id number] Given 05/04/2019 Influenza High Dose [id number] 39139 Given 04/24/2018 Influenza High Dose [id number] 46539 Given 04/08/2017 Influenza High Dose [id number] Q2038 Given 05/15/2016 Influenza Vaccine (Fluzone) Age 3 And Older [id number] Given 05/13/2015 Influenza Vaccine (Fluzone) Age 3 And Older [id number] 61290 Given 05/13/2015 Pneumococcal Conjugate Vaccine 13 Valent For [id number] Intramuscular Use Q2038 Given 04/23/2014 Influenza Vaccine (Fluzone) Age 3 And Older 50350 Given 04/23/2014 flu vaccination 48015 Given 05/04/2013 Zoster Vaccine Live Injection 50628 Given 05/01/2013 flu vaccination Q2038 Given 05/01/2013 Influenza Vaccine (Fluzone) Age 3 And Older [id number] Given 05/22/2012 Influenza Vaccine (Fluzone) Age 3 And Older 86234 Given 05/22/2012 flu vaccination Q2038 Given 04/08/2011 Influenza Vaccine (Fluzone) Age 3 And Older 98606 Given 04/08/2011 Pneumovax Injection 40196 Given 04/08/2011 flu vaccination 36056 Given 06/03/2008 flu vaccination 99614 Given 05/10/2007 flu vaccination Vital Signs Date Vital Result Comment 06/25/2019 9:55am BP Systolic 157 mmHg BP Diastolic 76 mmHg Body Temperature 98.1 F Heart Rate 69 /min Respiratory Rate 18 /min Height 58.5 inches 4'10.50" Weight 150.50 lb BMI (Body Mass Index) 30.9 kg/m2 BSA (Body Surface Area) 1.62 m2 [place] body weight in kilograms 45 kg O2 % BldC Oximetry 98 % Ra 03/05/2019 8:10am BP Systolic Sitting Left Arm 126 mmHg BP Diastolic Sitting Left Arm 72 mmHg Body Temperature 98.0 F Heart Rate 60 /min Respiratory Rate 18 /min Height 60 inches 5'0" Weight 149.00 lb BMI (Body Mass Index) 29.1 kg/m2 BSA (Body Surface Area) 1.65 m2 [place] body weight in kilograms 45 kg Results Test Acquired Date Facility Test Result H/L Range Note Iron-Tibc-%Sat 03/05/[address] Serum Iron 67 g/dL Normal 50 -170 1 [address] [place], [place] [id number] [phone] Total Iron Binding Capacity 428 g/dL Normal 250-450 Transferrin %Saturation 16 % Normal 12-57 CBC W/Automated 03/05/[address] White Blood 3.4 K/uL Normal 3.1-10.7 Diff [address] [facility] Count [place], [place] [id number] [phone] Red Blood Count 3.52 M/uL Low 3.90-5.40 Hemoglobin 10.4 gm/dL Low 11.6-15.8 Hematocrit 34.0 % Low 36.0-46.1 Mean Cell Volume 96.6 fl Normal 80.9-99.0 Mean Corpuscular HGB 29.5 pg Normal 25.9-32.7 Mean Corpuscular HGB Conc 30.6 g/dL Low 30.8-34.3 Platelet Count 245 K/uL Normal 155-360 Red Cell Distri Width SD 52.6 fl High 36-47 Red Cell Distri Width %CV 15.0 % High 11.7-14.4 Mean Platelet Volume 10.5 fl Normal 8.9-12.4 Neut% 61.7 % Normal 40.4-72.8 Lymph % 22.1 % Normal 20.0-42.0 Mccreary % 10.6 % Normal 4.3-13.2 Eo% 4.7 % Normal 0.0-6.6 Bas% 0.6 % Normal 0.0-1.1 Immature Grans 0.3 % Normal 0.0-5.0 NRBC % 0.0 /100WBC < 10/ 100 WBC Neut# 2.10 K/uL Normal 1.8-7.0 Lymph # 0.75 K/uL Low 1.0-4.0 Mccreary # 0.36 K/uL Normal 0.3-0.9 Eos # 0.16 K/uL Normal 0.0-0.5 Baso # 0.02 K/uL Normal 0.0-0.1 Immature Grans Absolute 0.01 K/uL NRBC # 0.00 K/uL Urine Dipstick 03/05/2019 [facility] Ua Nitrite - Negative Ua Urobilinogen .2 0.2 - 1.0 E.U./dL Ua Protein - Negative Ua PH 6 Low 6.5-7.5 Ua Blood 3+ High Negative Ua Specific [place] 1.015 1.010-1.030 Ua Ketones - Negative Ua Bilirubin - Negative Ua Glucose - Negative Urine Dipstick 03/02/2019 [facility] Inhouse Ua Color Yellow Yellow Ua Clarity Clear Clear Ua Leuko Negative Negative Ua Nitrite Negative Negative Ua Urobilinogen 0.2 0.2 - 1.0 E.U./dL Ua Protein Negative Negative Ua PH 7.0 6.5-7.5 Ua Blood Negative Negative Ua Specific [place] 1.010 1.010-1.030 Ua Ketones Negative Negative Ua Bilirubin Negative Negative Ua Glucose Negative Negative Urine 02/26/2019 [facility] Urine NO GROWTH: 2, [address] Culture FINAL <[place] [address] NOTE> [phone] Urine 02/15/2019 [facility] Urine ESCHERICHIA Abnormal [address] [place] [address] [phone] Quantity > 100,000 CFU/mL 5 Urine Culture URETHRAL JORGE Quantity 10,000 - 50,000 <SEE NOTE> 6 Escherichia Coli 02/15/2019 [facility] Nitrofurantoin <=[address] [place] [address] [phone] Trimethoprim/Sulfamethoxazole <=20 Susceptible Ampicillin 16 Intermediate Cefazolin <=4 Susceptible Ampicillin/Sulbactam 4 Susceptible Ciprofloxacin <=0.25 Susceptible Piperacillin/Tazobactam <=4 Susceptible Ceftazidime <=1 Susceptible Ceftriaxone <=1 Susceptible Cefepime <=1 Susceptible Levofloxacin <=0.12 Susceptible Imipenem <=0.25 Susceptible Gentamicin <=1 Susceptible Tobramycin <=1 Susceptible Urine Dipstick 02/15/2019 [facility] Ua Color Yellow Yellow Ua Clarity Cloudy Clear Ua Leuko 125 High Negative Ua Nitrite positive Negative Ua Urobilinogen 0.2 0.2 - 1.0 E.U./dL Ua Protein 15 High Negative Ua PH 6.0 Low 6.5-7.5 Ua Blood 200 High Negative Ua Specific [place] 1.015 1.010-1.030 Ua Ketones Negative Negative Ua Bilirubin Negative Negative Ua Glucose Negative Negative 1 G25.81 2 N39.0 3 NO GROWTH: FINAL REPORT 4 ESCHERICHIA COLI 5 > 100,000 CFU/mL 6 10,000 - 50,000 CFU/mL Procedures Date Code Description Status 06/25/2019 16184 Brief Emotional/Behav Assessment W/ Scoring Doc Per Completed Standard Inst 03/02/2019 14801 Cystourethroscopy W/ Biopsy Completed 01/28/2016 08509962 Mammogram Completed 03/06/2014 757622652 Bone Mineral Density Test Completed Medical Devices Description No Information Available Encounters Type Date Location Provider Dx Diagnosis Office Visit 06/25/2019 [facility] Kim F41.9 Anxiety disorder, 10:[address] 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 malignant neoplasm of bladder N39.0 Urinary tract infection, site not specified Assessments Date Code Description Provider 06/25/2019 F41.9 Anxiety disorder, unspecified Lawrence Alvarez FNP 06/25/2019 G25.81 Restless legs syndrome Lawrence Alvarez FNP 06/25/2019 M54.5 Low back pain Lawrence Alvarez FNP 05/04/2019 Z23 Encounter for immunization Laxmi Ruffin MD 05/04/2019 Z23 Encounter for immunization Family Nurse 03/05/2019 F41.9 Anxiety disorder, unspecified Lawrence Alvarez FNP 03/05/2019 M54.5 Low back pain Lawrence Alvarez FNP 03/05/2019 G25.81 Restless legs syndrome Lawrence Alvarez FNP 03/05/2019 Z87.440 Personal history of urinary (tract) Lawrence Alvarez FNP infections 03/02/2019 Z85.51 Personal history of malignant neoplasm Idania Pastor M.D. of bladder 03/02/2019 N39.0 Urinary tract infection, site not Idania Pastor M.D. specified 02/26/2019 N39.0 Urinary tract infection, site not Dexter Vega PA specified 02/15/2019 Z87.440 Personal history of urinary (tract) Idania Pastor M.D. infections Plan of Treatment Future Appointment(s):09/24/2019 10:30 am - Lawrence [facility] FNP at [facility]03/04/2020 10:00 am - Idania Pastor M.D. at [id number] - Lawrence Alvarez FNPF41.9 Anxiety disorder, unspecifiedComments: stable - continue without medication and continue to buiqswaP52.5 Low back painComments:Stable - continue with pain management - med list is up to date.G25.81 Restless legs syndromeComments:Doing well on Ropinirole, no medication changes needed.Follow up:3 months recheck 30 minZ87.440 Personal history of urinary (tract) infections Functional Status Description No Information Available Mental Status Description No Information Available Referrals Description No Information Available
--- OUTSIDE RECORDS SUMMARY | 2019-08-09 10:28 | XMS REPORT | Continuity of Care Document ---
:1940 External Reference #:[id number] Author Name Michael Kimball DO, MPH Address [address] [place] [address], [address] [place] [address] Care Team Providers Name Role Phone Lawrence Alvarez V. FACTORY FOCUS TECHNICIAN - Nurse Care Team Information End Worker Practitioner Problems Description No Information Available Social History Type Date Description Comments Sex Unknown ETOH Use Denies alcohol use Tobacco Use Start: Unknown Patient has never smoked Recreational Drug Use Denies Drug Use Smoking Status Reviewed: 07/13/19 Patient has never smoked Allergies, Adverse Reactions, [...] day Capsules Milk Thistle Unknown 140mg Capsules Immunizations Description No Information Available Vital Signs Date Vital Result Comment 07/13/2019 1:20pm BP Systolic 118 mmHg BP Diastolic 76 mmHg Heart Rate 74 /min Respiratory Rate 20 /min Height 60 inches 5'0" Weight 132.00 lb Pain Level 6 Pain at this time. Pain Level With Medicine 5 on average with meds Pain Level Without Medicine 9 without meds BMI (Body Mass Index) 25.8 kg/m2 05/31/2019 11:56am BP Systolic 120 mmHg BP Diastolic 78 mmHg Heart Rate 74 /min Respiratory Rate 18 /min Height 60 inches 5'0" Weight 136.00 lb Pain Level 4 Pain Level With Medicine 3 Pain Level Without Medicine 9 BMI (Body Mass Index) 26.6 kg/m2 Results Description No Information Available Procedures Date Code Description Status 05/31/2019 32551 Therapeutic, Prophylactic Or Diagnostic Injection Subq/Im Completed 05/01/2019 13332 Therapeutic, Prophylactic Or Diagnostic Injection Subq/Im Completed 03/30/2019 84228 Therapeutic, Prophylactic Or Diagnostic Injection Subq/Im Completed 02/27/2019 79913 Therapeutic, Prophylactic Or Diagnostic Injection Subq/Im Completed Medical Devices Description No Information Available Encounters Type Date Location Provider Dx Diagnosis Office Visit 05/31/2019 Main Office as Of Michael Kimball DO, G89.29 Other chronic pain 11:45a 09/01/13 MPH M15.0 Primary generalized (osteo)arthritis M79.641 Pain in right hand M79.642 Pain in left hand Z79.891 halfway (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 R53.83 Other fatigue Office Visit 05/01/2019 10:00a Main Office Michael Kimball, M15.0 Primary generalized as Of 09/01/13 DO MPH (osteo)arthritis M79.641 Pain in right hand M79.642 Pain in left hand M25.512 Pain in left shoulder M25.511 Pain in right shoulder Z79.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 (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 R53.83 Other fatigue Office Visit 03/30/2019 9:30a Main Office as Michael Kimball G89.29 Other chronic Of 09/01/13 DO, MPH pain M15.0 Primary generalized (osteo)arthritis M25.511 Pain in right shoulder M25.512 Pain in left shoulder M79.641 Pain in right hand M79.642 Pain in left hand Z79.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 (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 R53.83 Other fatigue Office Visit 02/27/2019 9:45a Main Office as KimballMichael chandra, G89.29 Other chronic Of 09/01/13 DO, MPH pain M15.0 Primary generalized (osteo)arthritis M25.512 Pain in left shoulder M25.511 Pain in right shoulder R53.83 Other fatigue Z79.891 halfway (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 Office Visit 01/31/2019 9:45a Main Office Kimball, Michael, M15.0 Primary generalized as Of 09/01/13 DO, MPH (osteo)arthritis M79.605 Pain in left leg M79.604 Pain in right leg M79.642 Pain in left hand M79.641 Pain in right hand M25.512 Pain in left shoulder M25.511 Pain in right shoulder Z79.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 (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 Assessments Date Code Description Provider 07/13/2019 G89.29 Other chronic pain Kimball, Michael, DO, MPH 07/13/2019 M15.0 Primary generalized (osteo)arthritis Kimball, Michael, DO, MPH 07/13/2019 M25.512 Pain in left shoulder Kimball, Michael, DO, MPH 07/13/2019 M25.511 Pain in right shoulder Kimball, Michael, DO, MPH 07/13/2019 M79.642 Pain in left hand Kimball, Michael, DO, MPH 07/13/2019 M79.641 Pain in right hand Kimball, Michael, DO, MPH 07/13/2019 Z79.891 halfway (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 Kimball, Michael , DO, MPH 07/13/2019 R53.83 Other fatigue Kimball, Michael, DO, MPH 05/31/2019 G89.29 Other chronic pain Kimball, Michael, DO, MPH 05/31/2019 M15.0 Primary generalized (osteo)arthritis Kimball, Michael, DO, MPH 05/31/2019 M79.641 Pain in right hand Kimball, Michael, DO, MPH 05/31/2019 M79.642 Pain in left hand Kimball, Michael, DO, MPH 05/31/2019 Z79.891 halfway (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 Kimball, Michael , DO, MPH 05/31/2019 R53.83 Other fatigue Kimball, Michael, DO, MPH 05/01/2019 M15.0 Primary generalized (osteo)arthritis Kimball, Michael, DO, MPH 05/01/2019 M79.641 Pain in right hand Kimball, Michael, DO, MPH 05/01/2019 M79.642 Pain in left hand Kimball, Michael, DO, MPH 05/01/2019 M25.512 Pain in left shoulder Kimball, Michael, DO, MPH 05/01/2019 M25.511 Pain in right shoulder Kimball, Michael, DO, MPH 05/01/2019 Z79.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 (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 Kimball, Michael [...] hand Kimball, Michael, DO, MPH 03/30/2019 Z79.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 (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 Kimball, Michael , DO, MPH 03/30/2019 R53.83 Other fatigue Kimball, Michael, DO, MPH 02/27/2019 G89.29 Other chronic pain Kimball, Michael, DO, MPH 02/27/2019 M15.0 Primary generalized (osteo)arthritis Kimball, Michael, DO, MPH 02/27/2019 M25.512 Pain in left shoulder Kimball, Michael DO, MPH 02/27/2019 M25.511 Pain in right shoulder Kimball, Michael DO, MPH 02/27/2019 R53.83 Other fatigue Kimball, Michael, DO, MPH 02/27/2019 Z79.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 (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 KimballWilliam chandraph , DO, MPH 01/31/2019 M15.0 Primary generalized (osteo)arthritis Michael Kimball DO, MPH 01/31/2019 M79.605 Pain in left leg Kimball, Michael, DO, MPH 01/31/2019 M79.604 Pain in right leg Kimball, Michael, DO, MPH 01/31/2019 M79.642 Pain in left hand Kimball, Michael, DO, MPH 01/31/2019 M79.641 Pain in right hand Kimball, Michael, DO, MPH 01/31/2019 M25.512 Pain in left shoulder Kimball, Michael DO, MPH 01/31/2019 M25.511 Pain in right shoulder Kimball, Michael, DO, MPH 01/31/2019 Z79.891 halfway (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 Michael Kimball DO, MPH Plan of Treatment Future Appointment(s):08/10/2019 1:30 pm - Michael Kimball DO, MPH at Main Office as Of 09/01/1411 - Michael Kimball DO, MPHG89.29 Other chronic [...] physical findings. Continue current medical pain management.Z79.891 halfway (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New Labs:Urine Drug Screen, Ordered: 07/13/19Comments:Urine drug screen sample taken today to monitor opiate use and to monitor use of illicit substances.Will discuss results at next appointment.The following tests were ordered:6 AM, AMPH, BROOKLYNN, NAA, BUP, CARIS, COCM, ETG, FENT, MCSHSG, OPI, OXY, PCP, TAPEN, XTSY, ZOLP. A urine drug test (UDT) was ordered for this patient and collected on site today. Creatinine has been ordered as well for specimen validity, not for kidney function. Preliminary UDT results are not final and should not be used to determine patient care or plan of treatment. Initially a qualitative immunoassay screen will bedone. Any inconsistent or positive findings will be [...] while maintaining satisfactory side effect profile andminimizing terminal make up operator end-organ damage. Importance of regular nutrition throughout the day discussed.Activity as toleratedContinue with PCP Functional Status Description No Information Available Mental Status Description No Information Available Referrals Description No Information Available
--- OUTSIDE RECORDS SUMMARY | 2019-08-09 10:28 | XMS REPORT | Continuity of Care Document ---
:1940 External Reference #:[id number] Author Name Alfreda Jerry PA-C Address [address] [place] [address] Care Team Providers Name Role Phone Laxmi Ruffin MD Care Team Information Vision Teacher [phone] Problems Active Problems Provider Date Essential hypertension Alfreda Jerry PA-C Onset: 10/14/2017 Flatulence, eructation and gas pain Alfreda Jerry PA-C Onset: 2018 Weight decreased Alfreda Jerry PA-C Onset: 12/27/2017 Gastroesophageal reflux disease Alfreda Jerry PA-C Onset: 12/27/2017 Slow transit constipation Alfreda Jerry PA-C Onset: 10/11/2017 Nausea and vomiting Alfreda Jerry PA-C Onset: 10/11/2017 Social History Type Date Description Comments Sex Unknown Tobacco Use Start: Unknown Patient has never smoked Smoking Status Reviewed: 07/09/19 Patient has never smoked Allergies, Adverse Reactions, Alerts Description No Known Drug Allergies Medications Active Medications SIG Qnty Indications Ordering Date Provider Dexilant 1 by mouth bid 60caps R14.2 Eleanor 07/09/[address] 30min prior to Foor-Pessin, meals Pantoprazole Sodium take 1 tablet 180tabs R11.2 Reed Ned, 09/28/2018 40mg by mouth twice DO Tablets DR daily(30 minutes before meal)- maximum daily dose is 2 tablets Atorvastatin Calcium take one tablet 90tabs Laxmi Ruffin, 06/20/2016 40mg by mouth at Tablets bedtime Ondansetron HCL 1 by mouth 30tabs Laxmi Ruffin, 11/14/2015 8mg Tablets three times a MD day as needed nausea Oxycodone-Acetaminophen 1 by mouth 150tabs AugustinLaxmi, 01/22/2015 every 4h as MD 10-325mg Tablets needed for mod. to severe pain Reference #: [id number] Clonazepam 1 by mouth 60tabs AugustinLaxmi, 0.5mg Tablets 2x/day as MD needed for restless legs or anxiety Reference #: [id number] Zolpidem Tartrate 1 by mouth 30tabs AugustinLaxmi, 10mg Tablets every night as MD needed for insomnia erence #: [id number] Polyethylene Glycol 3350 use 17 grams in 527units Laxmi Ruffin, 3350NF fluid at MD Powder bedtime Hydrochlorothiazide Take One Tablet 90tabs Laxmi Ruffin, 25mg By Mouth Every MD Tablets Morning Lisinopril Take One Tablet 90tabs AugustinLamxi, 5mg Tablets By Mouth Every MD Day Sertraline HCL Take One Tablet 90tabs Laxmi Ruffin, 100mg Tablets By Mouth Every MD Day Vitamin D-400 Unknown 400Unit Tablets Senior Vitamin Unknown Morphine Sulfate ER 1 by mouth Unknown 30mg Caps twice a day ER 24HR Immunizations Description No Information Available Vital Signs Date Vital Result Comment 07/09/2019 10:10am Height 59 inches 4'11" Weight 120.00 lb unstable for scale-told me weight BP Systolic 124 mmHg BP Diastolic 71 mmHg Heart Rate 62 /min BMI (Body Mass Index) 24.2 kg/m2 04/17/2019 9:30am Height 59 inches 4'11" Weight 127.00 lb BP Systolic 135 mmHg BP Diastolic 65 mmHg Heart Rate 66 /min BMI (Body Mass Index) 25.6 kg/m2 Results Description No Information Available Procedures Description No Information Available Medical Devices Description No Information Available Encounters Type Date Location Provider Dx Diagnosis Office Visit 04/17/2019 [facility] Alfreda Loera R11.2 Nausea with 9:[facility]a [facility] vomiting, unspecified Assessments Date Code Description Provider 07/09/2019 R14.2 [facility] Alfreda Jerry PA-C 07/09/2019 R11.2 Nausea with vomiting, unspecified DARYN Owusu 07/09/2019 K21.9 Gastro-esophageal reflux disease without Alfreda Jerry PA-C esophagitis 04/17/2019 R11.2 Nausea with vomiting, unspecified DARYN Owusu Plan of Treatment Future Appointment(s):08/17/2019 2:00 pm - Reed Marino DO at [facility]11/06/2019 10:00 am - Eleanor Stewart MD [facility]07/09/2019 - DARYN Owusu14.2 EructationNew Medication:Dexilant 60 mg - 1 by mouth bid 30min prior to qjtcyF87.2 Nausea with vomiting, sunqaruzmxcR49.9 Gastro-esophageal reflux disease without esophagitis Functional Status Description No Information Available Mental Status Description No Information Available Referrals Description No Information Available
[2019-08-09] MEDS ORDERED: fentaNYL* 50 MCG/ML 2 ML VIAL (100 MCG VIAL) IV SLOW PU ONE (10:45)
--- NOTE | 2019-08-09 12:43 | HP ---
H&P (Free Text) History and Physical: History and Physical / General Surgery Diagnosis: Incarcerated Left Inguinal Hernia Chief Complaint: Left groin pain HPI: 78 yo female with a history of a reducible left inguinal hernia presents to the ED with an incarcerated left inguinal hernia that she and her daughter have been unable to reduce. The patient was scheduled to be seen in the office next week to discuss surgical repair. Patient reports chronic constipation along with chronic opioid use for severe spinal stenosis, reports a regular regimen of colace and miralax, but has not had a BM in 2 days, hernia has been unreducible for the same time frame PMH: Chronic Constipation, HTN, OA, Spinal Stenosis, GERD, Hiatal Hernia, ^ Cholesterol, diverticulitis PSH: TY ovaries preserved & Appy, Lap Shanel, bladder lift, SOCIAL HX: TOB former ETOH - FAMILY HISTORY: no family hx of cancer, bleeding, or anesthesia problems ALLERGIES: NKDA MEDICATIONS: not taking any blood thinners see attached MAR for reg home meds ROS: Other than as per HPI a 14 point Review of Systems was negative PHYSICAL EXAM: VS: Vital Signs: Temp Pulse Resp BP Pulse Ox 98.7 F 73 20 150/65 93 08/09/19 08:29 08/09/19 12:31 08/09/19 11:05 08/09/19 12:31 08/09/19 12:31 General: NAD HEENT: NCAT, neck supple. 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 PSYCH: AxO x 3 LABS: Sodium 135 mmol/L (135-145) 08/09/19 09:06 Potassium 4.1 mmol/L (3.5-5.0) 08/09/19 09:06 BUN 35 mg/dL (6-24) H 08/09/19 09:06 Creatinine 0.84 mg/dL (0.51-0.95) 08/09/19 09:06 Calcium 9.2 mg/dL (8.6-10.3) 08/09/19 09:06 AST 22 U/L (13-39) 08/09/19 09:06 ALT 20 U/L (7-52) 08/09/19 09:06 RESULTS: Patient Name: CHRISTIAN WONG Medical Record#: [id number] Ordering Physician: Anant VAZQUEZ Acct.#: [id number] : 1940 Age: 78 Sex: F Location: EMERGENCY DEPARTMENT Exam Date: 08/09/19900 ADM Status: REG ER Order Information: CT ABD/PEL W Accession Number: [id number] CPT: 19766 CLINICAL HISTORY: hernia COMPARISON: None relevant available at the time of dictation. TECHNIQUE: Multiple contiguous axial CT scans were obtained of the abdomen and pelvis after the administration of intravenous contrast. Coronal and sagittal multiplanar reformations are submitted for review. Oral contrast was administered. Delayed images were obtained through the abdomen. FINDINGS: LUNG BASES: The lung bases are clear. LIVER: The liver is diffusely low in attenuation compared to the spleen. There are no focal hepatic parenchymal masses. BILE DUCTS: There is extensive intrahepatic and extrahepatic biliary dilatation extending to the level of the ampulla. The common duct measures 2.8 cm. GALLBLADDER: The gallbladder is not visualized. Surgical clips are noted in the gallbladder fossa. PANCREAS: There is no appreciable pancreatic head mass to account for the biliary dilatation. There is no pancreatic ductal dilatation. SPLEEN: Normal in size and appearance. UPPER GI TRACT: Evaluation of the gastrointestinal tract is limited by incomplete gastric distention. The upper GI tract is unremarkable. SMALL BOWEL AND MESENTERY: The small bowel is normal in contour, course, and caliber. There is no obstruction or dilatation. COLON: There is a very large amount of stool throughout the colon. This extends to the level of the sigmoid colon at the point of herniation. There are scattered diverticula of the distal colon. ADRENALS: Normal bilaterally. KIDNEYS: The kidneys are normal in shape, size, contour, and axis. There is no hydronephrosis or nephrolithiasis. BLADDER: There is a cystocele. PELVIC ORGANS: The pelvic organs are not visualized. AORTA: There is calcific atherosclerotic disease of the abdominal aorta and its branches, without aneurysmal dilatation IVC: Unremarkable LYMPH NODES: There is no lymphadenopathy by size criteria. ABDOMINAL WALL: There is a left inguinal hernia containing a portion of sigmoid colon. BONES AND SOFT TISSUES: Degenerative changes noted of the spine. There is a complex cystic lesion of the right internal obturator muscle measuring approximately 6.8 x 5.2 x 9 cm in size. OTHER: There is a small amount of ascites predominantly within the left hernia sac. IMPRESSION: 1. THERE IS LARGE AMOUNT OF STOOL THROUGHOUT THE COLON EXTENDING TO THE LEVEL OF A LEFT INGUINAL HERNIA CONTAINING PORTIONS OF SIGMOID COLON, CONCERNING FOR COLONIC OBSTRUCTION AT THIS POINT. 2. THERE IS EXTENSIVE BILIARY DILATATION EXTENDING TO THE LEVEL OF THE AMPULLA. THERE IS NO APPRECIABLE PANCREATIC MASS OR PANCREATIC DUCTAL DILATATION. 3. THERE IS A COMPLEX CYSTIC LESION OF THE RIGHT INTERNAL OBTURATOR MUSCLE OF UNCLEAR ETIOLOGY. RECOMMEND CONSIDERATION FURTHER EVALUATION WITH CONTRAST-ENHANCED MRI OF THE PELVIS IN THE NONACUTE SETTING. 4. CYSTOCELE. 5. ATHEROSCLEROSIS, ASSESSMENT: 78 yo female with unreducible incarcerated left inguinal hernia. PLAN: After patient was medicated, I attempted to reduce the hernia but was unable. Patient was told that this will require surgery and that she would be put on the schedule for later today. Above was discussed with the patient and with her two daughters who were at bedside. all questions were answered. Case was also discussed with Dr Diane.
[2019-08-09] MEDS ORDERED: Ondansetron INJ* 2 MG/ML VIAL IV ONE ×2 (12:57→14:01)
[2019-08-09] MEDS ORDERED: Morphine 4 MG/ML VIAL (1 ml) 4 MG/ML VIAL IV ONE (12:57)
[2019-08-09] MEDS ORDERED: Midazolam* 1 MG/ML 2 ML VIAL (2 MG) ONE (13:38)
[2019-08-09] MEDS ORDERED: KETAMINE HCL* 50 MG/ML 10 ML VIAL ONE (13:38)
[2019-08-09] MEDS ORDERED: fentaNYL* 50 MCG/ML 2 ML VIAL (100 MCG VIAL) ONE ×2 (13:38→14:59)
[2019-08-09] MEDS ORDERED: Rocuronium* 10 MG/ML VIAL ONE (13:38)
[2019-08-09] MEDS ORDERED: Lidocaine 1% INJ* 10 MG/ML 30 ML SDV ONE (13:54)
[2019-08-09] MEDS ORDERED: Famotidine IV* 10 MG/ML 2 ML (20 mg) IV ONE (14:01)
[2019-08-09] MEDS ORDERED: Buffered Lidocaine 1% SYRIN* 1 ML/SYRINGE INTRADERM ONE (14:01)
[2019-08-09] MEDS ORDERED: Dexamethasone IV* 4 MG/ML 1 ML (4 MG) IV SLOW PU ONE (14:01)
[2019-08-09] MEDS ORDERED: Naloxone* 0.4 MG/ML 1 ML VIAL IV PRN ×2 (14:02→17:22)
[2019-08-09] MEDS ORDERED: DiMENhydriNATE IV* 50 MG/ML VIAL IV PUSH PRN ×2 (14:02→17:20)
[2019-08-09] MEDS ORDERED: fentaNYL* 50 MCG/ML 2 ML VIAL (100 MCG VIAL) IV PRN (14:02)
[2019-08-09] MEDS ORDERED: PROCHLORPERAZINE INJ 5 MG/ML 2 ML VIAL IV PRN ×2 (14:02→17:20)
[2019-08-09] MEDS ORDERED: HYDROmorphone INJ1* 1 MG/ML SYRINGE IV PRN (14:02)
[2019-08-09] MEDS ORDERED: Dexamethasone IV* 4 MG/ML 1 ML (4 MG) ONE ×2 (14:20→15:35)
[2019-08-09] MEDS ORDERED: Famotidine IV* 10 MG/ML 2 ML (20 mg) ONE (14:20)
[2019-08-09] MEDS ORDERED: Bupivacaine 0.25% EPI 200,000* 30 ML SDV ONE (14:45)
[2019-08-09] MEDS ORDERED: Labetalol IV* 5 MG/ML 20 ML VIAL ONE (14:45)
[2019-08-09] MEDS ORDERED: Lactated Ringers 1000 ML Bag* 1,000 ML IV SCH ×2 (15:00)
[2019-08-09] MEDS ORDERED: Ertapenem* 1 GM in NS 0.9% 50 ML* 50 ML IVPB ONE (15:00)
[2019-08-09] MEDS ORDERED: Propofol* 10 MG/ML 20 ML BTL ONE (15:35)
[2019-08-09] MEDS ORDERED: Norepinephrine VIAL* 1 MG/ML 4 ML VIAL ONE (15:35)
[2019-08-09] MEDS ORDERED: Lidocaine 2% PF * 5 ML VIAL ONE (15:35)
[2019-08-09] MEDS ORDERED: Sugammadex * 200 MG/2 ML VIAL IV PUSH ONE (15:35)
[2019-08-09] MEDS ORDERED: Phenylephrine 10 MG/ML VIAL* 1 ML VIAL ONE (15:35)
--- NOTE | 2019-08-09 16:52 | OP ---
Operative Report - Blank - Operative Report Date of Operation: 08/09/19 Note: Operative Note Preoperative Dx: Strangulated Left Inguinal hernia Postoperative Dx: Strangulated Left Inguinal Hernia Procedure: Open repair of Left Inguinal Hernia with Mesh Anesthesia: GET Surgeon: Roxi FREEMAN Assist: Cleo MATTSON, Brigida VAZQUEZ-Student EBL: < 25cc Specimen: Hernia Sack Fluids:1500cc Drain: none Findings: as above
[2019-08-09] MEDS ORDERED: Docusate CAP* 100 MG PO PRN (16:53)
[2019-08-09] MEDS ORDERED: oxyCODONE/Acetamin 5/325 MG* TAB PO PRN (16:53)
[2019-08-09] MEDS ORDERED: Ondansetron INJ* 2 MG/ML VIAL IV PRN (16:53)
[2019-08-09] MEDS ORDERED: Morphine INJ* 2 MG/ML 1 ML SYRINGE (TWO MG - NEW SYRINGE VERSION) IV PRN (17:05)
[2019-08-09] MEDS ORDERED: Polyethylene Glycol 3350* 17 GM PACKET PO PRN (17:11)
--- OUTSIDE RECORDS SUMMARY | 2019-08-09 17:24 | XMS REPORT | Continuity of Care Document ---
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 Jose Guadalupe Cota MD Onset: 2011 Essential hypertension Laxmi Ruffin MD Onset: 07/17/2015 Hyperlipidemia Laxmi Ruffin MD Onset: 07/17/2015 Anxiety state Laxmi Ruffin MD Onset: 07/17/2015 Thoracic and lumbosacral neuritis Laxmi Ruffin MD Onset: 07/17/2015 Urine examination Laxmi Ruffin MD Onset: 07/17/2015 Impaired fasting glycaemia Laxmi Ruffin MD Onset: 09/24/2015 Neoplasm of uncertain behavior of skin Laxmi Ruffin MD Onset: 09/24/2015 Cystitis Laxmi Ruffin MD Onset: 05/10/2016 Inguinal hernia Laxmi Ruffin MD Onset: 12/03/2016 Urine leukocyte test = ++ Laxmi Ruffin MD Onset: 12/03/2016 Social History Type Date Description Comments Sex Unknown Tobacco Use Start: Unknown Never Smoked Cigarettes but was exposed to second hand smoke ETOH Use Denies alcohol use Tobacco Use Start: Unknown Patient has never smoked Smoking Status Reviewed: 03/23/19 Patient has never smoked Allergies, Adverse Reactions, Alerts Description No Known Drug Allergies Medications Active Medications SIG Qnty Indications Ordering Date Provider Atorvastatin Calcium take one tablet 90tabs Augustin 06/20/2016 40mg by mouth at MD Laxmi Tablets bedtime Ondansetron HCL 1 by mouth 30tabs Queta Watson, 11/14/2015 8mg Tablets three times a AEROBICS INSTRUCTOR day if needed for nausea Hydrocortisone Valerate apply to 45unjuwan Augustin, 09/24/2015 0.2% affected MD Laxmi Cream area(s) three times a day as needed Onetouch Ultra Blue use to test 200units E11.8 Augustin, 04/14/2015 Strips blood sugar MD Laxmi twice a day Onetouch Ultrasoft uad to check 200units Augustin, 04/14/2015 Lancets glucose 2x/day MD Laxmi Misc Oxycodone-Acetaminophen 1 by mouth 150tabs Augustin, 01/22/2015 every 4h as MD Laxmi 10-325mg Tablets needed for mod. to severe pain Reference #: [id number] Multi-Vitamins/Iron once a day Unknown Tablets Calcium/Vit D once a day Unknown 600mg Clonazepam 1 by mouth 60tabs Queta Watson, 0.5mg Tablets 2x/day as AEROBICS INSTRUCTOR needed for restless legs or anxiety, refilling for Dr. Ruffin, Reference #: [id number] Zolpidem Tartrate 1 by mouth 30tabs Queta Watson, 10mg Tablets every night as AEROBICS INSTRUCTOR needed for insomnia, mdd 1#, Reference #: [id number] Pantoprazole Sodium take one tablet 90tabs Augustin, 40mg by mouth every MD Laxmi Tablets DR Polyethylene Glycol 3350 use 17 grams in 527un Augustin, 3350NF fluid at MD Laxmi Powder bedtime Hydrochlorothiazide take 1 tablet 90tabs Augustin, 25mg by mouth every MD Laxmi Tablets morning. maximum daily dose is 1 Lisinopril take 1 tablet 90tabs Augustin, 5mg Tablets by mouth every MD Laxmi day. maximum daily dose is 1 Sertraline HCL take one tablet 90tabs Queta Watson, 100mg Tablets by mouth every AEROBICS INSTRUCTOR day Embeda TK 1 Capsule Q Unknown 30-1.2mg Capsules ER 12 H MDD 2 Medications Administered in Office Medication SIG Qnty Indications Ordering Provider Date Depomedrol 40mg/1cc Mirta Cordero MD 02/10/2009 (methylprednisolone acetate) Injection Depomedrol 40mg/1cc Mirta Cordero MD 07/10/2008 (methylprednisolone acetate) Injection Depomedrol 40mg/1cc Mirta Cordero MD 07/10/2008 (methylprednisolone acetate) Injection Immunizations CPT Code Status Date Vaccine Lot # [id number] Given 04/19/2019 Influenza High Dose 87266 Given 04/21/2018 Influenza High Dose 30059 Given 09/24/2015 Tdap injection 4LF 22989 Given 07/17/2015 Pneumococcal Conjugate Vaccine 13 Valent For [id number] Intramuscular Use Q2038 Given 04/11/2015 Influenza Vaccine (Fluzone) Age 3 And Older 21881 Given 09/04/2012 Zoster Vaccine Live Injection U-Td Given 08/20/2005 Td(Adult),Unspecified 69231 Given 05/11/2005 Pneumovax Injection 07356 Given 05/02/2003 flu vaccination 98117 Given 05/24/2001 flu vaccination Vital Signs Date Vital Result Comment 03/23/2019 9:20am BP Systolic 140 mmHg BP Diastolic 65 mmHg Body Temperature 97.4 F Heart Rate 75 /min Respiratory Rate 18 /min Height 58 inches 4'10" Weight 119.12 lb BMI (Body Mass Index) 24.9 kg/m2 BSA (Body Surface Area) 1.46 m2 Galvin body weight in kilograms 45 kg O2 % BldC Oximetry 98 % 12/06/2017 8:51am BP Systolic 124 mmHg BP Diastolic 80 mmHg Body Temperature 97.1 F Heart Rate 97 /min Height 59 inches 4'11" Weight 124.00 lb BMI (Body Mass Index) 25.0 kg/m2 BSA (Body Surface Area) 1.51 m2 Galvin body weight in kilograms 45 kg O2 % BldC Oximetry 96 % Results Test Acquired Date Facility Test Result H/L Range Note CBC Auto 08/09/2019 [facility] White Blood 11.0 10^3/ uL High 3.5-10.8 Diff [phone] Count Red Blood Count 3.88 10^6/uL Normal 3.70-4.87 Hemoglobin 12.0 g/dL Normal 12.0-16.0 Hematocrit 35 % Normal 35-47 Mean Corpuscular Volume 90 fL Normal 80-97 Mean Corpuscular Hemoglobin 31 pg Normal 27-31 Mean Corpuscular HGB Conc 34 g/dL Normal 31-36 Red Cell Distribution Width 14 % Normal 10-15 Platelet Count 586 10^3/uL High 150-450 Mean Platelet Volume 6.4 fL Low 7.4-10.4 Abs Neutrophils 9.5 10^3/uL High 1.5-7.7 Abs Lymphocytes 0.6 10^3/uL Low 1.0-4.8 Abs Monocytes 0.7 10^3/uL Normal 0-0.8 Abs Eosinophils 0.1 10^3/uL Normal 0-0.6 Abs Basophils 0.1 10^3/uL Normal 0-0.2 Abs Nucleated RBC 0.0 10^3/uL Granulocyte % 86.4 % Lymphocyte % 5.4 % Monocyte % 6.7 % Eosinophil % 1.0 % Basophil % 0.5 % Nucleated Red Blood Cells % 0.0 Inr/Protime 08/09/2019 [facility] Inr 1.03 Normal 0.82-1.09 3 [phone] Laboratory test 08/09/2019 [facility] Activated 36.6 Normal 26.0-38.0 finding [phone] Partial seconds Thrombo Time Lactic Acid 1.0 mmol/L Normal 0.5-2.0 2 Comp Metabolic 08/09/2019 [facility] Sodium 135 mmol/ L Normal 135-145 Panel [phone] Potassium 4.1 mmol/L Normal 3.5-5.0 Chloride 96 mmol/L Low 101-111 Co2 Carbon Dioxide 30 mmol/L Normal 22-32 Anion Gap 9 mmol/L Normal 2-11 Glucose 131 mg/dL High 70-100 Blood Urea Nitrogen 35 mg/dL High 6-24 Creatinine 0.84 mg/dL Normal 0.51-0.95 BUN/Creatinine Ratio 41.7 High 8-20 Calcium 9.2 mg/dL Normal 8.6-10.3 Total Protein 7.1 g/dL Normal 6.4-8.9 Albumin 4.0 g/dL Normal 3.2-5.2 Globulin 3.1 g/dL Normal 2-4 Albumin/Globulin Ratio 1.3 Normal 1-3 Total Bilirubin 0.60 mg/dL Normal 0.2-1.0 Alkaline Phosphatase 96 U/L Normal 34-104 Alt 20 U/L Normal 7-52 Ast 22 U/L Normal 13-39 Egfr Non- 65.2 >60 Egfr 78.9 >60 3 Urine Culture 05/21/2019 [facility] Urine Culture URETHRAL JORGE [address] [place] [address] [phone] Quantity < 10,000 CFU/mL Urine Dipstick 05/21/2019 [facility] Ua Color Yellow Yellow Ua Clarity Clear Clear Ua Leuko Negative Negative Ua Nitrite Negative Negative Ua Urobilinogen 3.5 High 0.2 - 1.0 E.U./dL Ua Protein Negative Negative Ua PH 6.5 6.5-7.5 Ua Blood Negative Negative Ua Specific [place] 1.015 1.010-1.030 Ua Ketones Negative Negative Ua Bilirubin Negative Negative Ua Glucose Negative Negative Poc Urinalysis 05/13/2019 [facility] Poc Glucose, Negative Negative [phone] Urine Poc Bilirubin, Urine Negative Negative Poc Ketone, Urine Negative Negative Poc Specific [place], Urine 1.015 Normal 1.010-1.030 Poc Blood, Urine Trace-intact Abnormal Negative Poc pH, Urine 7.0 Normal 5-9 Poc Protein, Urine Negative Negative Poc Urobilinogen, Urine 0.2 Negative Poc Nitrite, Urine Positive Abnormal Negative Poc Leukocytes, Urine 3+ Abnormal Negative Poc Color, Urine Yellow Poc Clarity, Urine Cloudy 5 Urine Culture And 05/13/2019 [facility] Urine SEE RESULT 6, 7 Sensitivities [phone] Culture BELOW CBC W/Automated 03/20/[address] [facility] [address] White Blood 5.8 K/uL Normal 3.1- [address] Count 10[address]7 [place], [place] [id number] [phone] Red Blood Count 4.06 M/uL Normal 3.90-5.40 Hemoglobin 12.4 gm/dL Normal 11.6-15.8 Hematocrit 39.6 % Normal 36.0-46.1 Mean Cell Volume 97.5 fl Normal 80.9-99.0 Mean Corpuscular HGB 30.5 pg Normal 25.9-32.7 Mean Corpuscular HGB Conc 31.3 g/dL Normal 30.8-34.3 Platelet Count 320 K/uL Normal 155-360 Red Cell Distri Width SD 46.8 fl Normal 36-47 Red Cell Distri Width %CV 13.0 % Normal 11.7-14.4 Mean Platelet Volume 9.8 fl Normal 8.9-12.4 Neut% 76.6 % High 40.4-72.8 Lymph % 9.7 % Low 20.0-42.0 [place] % 7.1 % Normal 4.3-13.2 Eo% 5.7 % Normal 0.0-6.6 Bas% 0.7 % Normal 0.0-1.1 Immature Grans 0.2 % Normal 0.0-5.0 NRBC % 0.0 /100WBC < 10/ 100 WBC Neut# 4.43 K/uL Normal 1.8-7.0 Lymph # 0.56 K/uL Low 1.0-4.0 [place] # 0.41 K/uL Normal 0.3-0.9 Eos # 0.33 K/uL Normal 0.0-0.5 Baso # 0.04 K/uL Normal 0.0-0.1 Immature Grans Absolute 0.01 K/uL NRBC # 0.00 K/uL Comprehensive Metabolic 03/20/[address] [facility] [address] Glucose 111 mg/dL High 74-106 Panel [address] [place], [place] [id number] [phone] BUN 24 mg/dL High 7-18 Creatinine 0.8 mg/dL Normal 0.6-1.3 Glom Filtration Rate, Estimate >60 mL/min >60 If >60 mL/min >60 9 BUN/Creat 30.0 ratio Sodium 139 mmol/L Normal 136-145 Potassium 4.1 mmol/L Normal 3.5-5.1 Chloride 106 mmol/L Normal 98-107 Carbon Dioxide 31 mmol/L Normal 21-32 Anion Gap 2 mEq/L Low 8-16 Calcium 9.0 mg/dL Normal 8.5-10.1 Total Protein 7.7 g/dL Normal 6.4-8.2 Albumin 3.9 g/dL Normal 3.4-5.0 Globulin 3.8 g/dL Normal 1.9-4.3 Alb/Glob 1.0 ratio Bilirubin,Total 0.4 mg/dL Normal 0.2-1.0 Sgot/Ast 27 U/L Normal 15-37 SGPT/Alt 29 U/L Normal 12-78 Alkaline Phosphatase 112 U/L Normal 45-117 Glycohemoglobin 03/20/[address] Glycohemoglobin 5.8 % Normal 4.2-6.[address] (A1c) [place] [address] [phone] eAG 120 mg/dL LDL Cholesterol Profile 03/20/[address] Cholesterol 160 mg/dL <[address] [place] [address] [phone] Triglycerides 93 mg/dL <150 12 HDL Cholesterol 70 mg/dL >40 13 LDL-Cholesterol 71 mg/dL < 100 14 1 Standard intensity warfarin therapeutic range: 2.0-3.0 High intensity warfarin therapeutic range: 2.5-3.5 2 [place] Severe Sepsis and Septic Shock Management Bundle Measure requires all lactic acids initially measuring >2.0 mmol/L be repeated. 3 Because ethnic data is not always readily available, this report includes an eGFR for both -Americans and non- Americans. The National Kidney Disease Education Program (NKDEP) does not endorse the use of the MDRD equation for patients that are not between the ages of 18 and 70, are , have extremes of body size, muscle mass, or nutritional status, or are non- or non-. According to the National Kidney Foundation, irrespective of diagnosis, the stage of the disease is based on the level of kidney function: Stage Description GFR(mL/min/1.73 m(2)) 1 Kidney damage with normal or decreased GFR 90 2 Kidney damage with mild decrease in GFR 60-89 3 Moderate decrease in GFR 30-59 4 Severe decrease in GFR 15-29 5 Kidney failure <15 (or dialysis) 4 R30.0 5 Grinding Wheel Operator: [id number] SEE RESULT BELOW Name: JONELLE WONG : [address]: Keshawn Sanders MD Acct: [id number] Unit: [id number] AGE: 78 Location: [facility] Re05/13/19 SEX: F Status: DEP ER SPEC: [id number] ANASTASIIA: 05/13/19 [facility] DR: Giselle Ruff NP REQ: [id number] RECD: 05/13/19 STATUS: LIANET VEGA DR: Laxmi Sanders MD _ SOURCE: URINE SPDC: ORDERED: Urine Culture COMMENTS: [id number] QUERIES: Urine Source: Random Procedure Result Reported Site Urine Culture Final 05/15/19740 ML Organism 1 ESCHERICHIA COLI [place] Count >100,000 (Many) CFU/ML 1. ESCHERICHIA COLI M.I.C. RX --------- ------ Ampicillin <=2 S Cefazolin <=4 S Cefepime <=1 S Ceftriaxone <=1 S Ciprofloxacin <=0.25 S Gentamicin <=1 S Levofloxacin <=0.12 S Meropenem <=0.25 S Nitrofurantoin <=16 S Tetracycline <=1 S Pipercillin/Tazobactam <=4 S Trimethoprim/Sulfamethoxazole <=20 S Amoxicillin/Clavulanic Acid <=2 S Aztreonam <=1 S Contact the Microbiology Department for any additional antibiotic reporting. * ML - [facility] . 8 Z00.01 I10 Z79.891 R73.01 E78.5 9 Note: Persistent reduction for 3 months or more in an eGFR <60 mL/min/1.73 m2 defines CKD. Patients with eGFR values >/=60 mL/min/1.73 m2 may also have CKD if evidence of persistent proteinuria is present. The original MDRD equation for estimated GFR is not valid for patients less than 18 years of age. Additional information may be found at www.kdoqi.org. 10 Elevated levels of HbA1c suggest the need for more aggressive treatment of glycemia. The [place] [employer] recommends that a primary goal of therapy should be a HbA1c of <7% and that physicians should re-evaluate the treatment regimen in patients with HbA1c values consistently >8%. 11 Reference Guidelines*: Desirable: ........... < 200 mg/dL Borderline High: ..... 200-239 mg/dL High: ................ >= 240 mg/dL * The National Cholesterol Education Program (NCEP) 12 Reference Guidelines*: Normal: ............. < 150 mg/dL Borderline High: .... 150-199 mg/dL High: ............... 200-499 mg/dL Very High: .......... > 500 mg/dL * Source: National Cholesterol Education Program (NCEP) 13 Reference Guidelines*: Low HDL: ..... < 40 mg/dL Normal: ..... 40-60 mg/dL Desirable: ... > 60 mg/dL *The National Cholesterol Education Program(NCEP) 14 Reference Guidelines*: Optimal:........... <100 mg/dL Near Optimal....... 100-129 mg/dL Borderline High.... 130-159 mg/dL High............... 160-189 mg/dL Very High.......... >=190 mg/dL * Source: National Cholesterol Education Program (NCEP) Procedures Date Code Description Status 10/15/2016 [id number] Mammogram Completed 08/01/2016 [id number] Bone Mineral Density Test Completed 08/01/2012 [id number] Colonoscopy Completed Medical Devices Description No Information Available Encounters Type Date Location Provider Dx Diagnosis Office Visit 03/23/2019 [facility] Queta Watson FNP Z00.01 Encounter for 9:30a [facility] general adult medical exam w abnormal findings I10 Essential (primary) hypertension E78.5 Hyperlipidemia, unspecified R73.01 Impaired fasting glucose F41.9 Anxiety disorder, unspecified K40.90 Unil inguinal hernia, w/o obst or gangr, not spcf as recur Assessments Date Code Description Provider 05/21/2019 R30.0 Dysuria Laxmi Ruffin MD 05/21/2019 R30.0 Dysuria Family Nurse 03/23/2019 Z00.01 Encounter for general adult medical examination Queta Watson FNP with abnorma 03/23/2019 I10 Essential (primary) hypertension Queta Watson FNP 03/23/2019 E78.5 Hyperlipidemia, unspecified Queta Watson FNP 03/23/2019 R73.01 Impaired fasting glucose Queta Watson FNP 03/23/2019 F41.9 Anxiety disorder, unspecified Queta Watson FNP 03/23/2019 K40.90 Unilateral inguinal hernia, without obstruction Queta Watson FNP or gangrene, Plan of Treatment Future Appointment(s):09/10/2019 10:30 am - Queta Watson FNP at [facility] Functional Status Functional Condition Comment Date Status Independent with all ADL's Active Glasses Active Standard cane is used with the right hand to ambulate Active Partial lower dentures bridge Active Mental Status Description No Information Available Referrals Description No Information Available
[2019-08-09] MEDS: fentaNYL* 50 MCG/ML 2 ML VIAL (100 MCG VIAL) IV PRN ×3 (17:28→17:51)
[2019-08-09] MEDS: HYDROmorphone INJ1* 1 MG/ML SYRINGE IV PRN ×2 (18:07→18:20)
[2019-08-09] MEDS: Lactated Ringers 1000 ML Bag* 1,000 ML IV SCH (19:58)
[2019-08-10 05:55] LABS: ABS Eosinophils 0.1 10^3/ul (0-0.6); ABS Lymphocytes 0.6 10^3/ul (1.0-4.8); ABS Neutrophils 8.6 10^3/ul (1.5-7.7); Eosinophil % 0.5 %; Hematocrit 33 % (35-47); Hemoglobin 11.3 g/dL (12.0-16.0); Lymphocyte % 5.4 %; Mean Corpuscular HGB Conc 34 g/dL (31-36); Mean Corpuscular Hemoglobin 31 pg (27-31); Mean Corpuscular Volume 90 fL (80-97); Mean Platelet Volume 6.4 fL (7.4-10.4); Nucleated Red Blood Cells % 0.1; Platelet Count 490 10^3/uL (150-450); Red Blood Count 3.66 10^6 /uL (3.70-4.87); Red Cell Distribution Width 14 % (10-15); White Blood Count 10.3 10^3/uL (3.5-10.8)
[2019-08-10] MEDS: Lactated Ringers 1000 ML Bag* 1,000 ML IV SCH (06:04)
[2019-08-10] MEDS: Heparin VIAL(*) 5000 UNITS/ML VIAL (FIVE THOUSAND) SUBCUT SCH ×3 (06:05→21:31)
[2019-08-10 06:12] LABS: Albumin 3.4 g/dL (3.2-5.2); Albumin/Globulin Ratio 1.4 (1-3); BUN/Creatinine Ratio 31.8 (8-20); Calcium 8.5 mg/dL (8.6-10.3); EGFR African American 104.3 (>60); EGFR Non-African American 86.2 (>60); Globulin 2.4 g/dL (2-4); Potassium 4.4 mmol/L (3.5-5.0); Total Bilirubin 0.5 mg/dL (0.2-1.0); Total Protein 5.8 g/dL (6.4-8.9)
[2019-08-10] MEDS: oxyCODONE/Acetamin 5/325 MG* TAB PO PRN ×3 (08:57→20:37)
[2019-08-10] MEDS: Lisinopril TAB* 5 MG PO SCH (08:57)
[2019-08-10] MEDS: Hydrochlorothiazide TAB* 25 MG PO SCH (08:57)
[2019-08-10] MEDS: Pantoprazole TAB * 40 MG TAB PO SCH (08:57)
[2019-08-10] MEDS: Sertraline* 100 MG TAB PO SCH (08:57)
[2019-08-10] MEDS: Polyethylene Glycol 3350* 17 GM PACKET PO SCH ×2 (10:32→20:38)
[2019-08-10] MEDS: Morphine INJ* 4 MG/ML 1 ML SYRINGE (NEW SYRINGE VERSION) IV PRN ×2 (10:46→15:40)
--- NOTE | 2019-08-10 12:33 | PN ---
Progress Note - Progress Note Date of Service: 08/10/19 SOAP: Subjective: NAD + loose BM this AM [] Objective: Vital Signs Temp 98.7 F 08/10/19 11:48 Pulse 73 08/10/19 11:48 Resp 18 08/10/19 12:02 BP 123/45 08/10/19 11:48 Pulse Ox 93 08/10/19 11:48 Intake & Output 08/09/19 08/10/19 08/10/19 18:59 06:59 18:59 Intake Total 1500 1400 394 Output Total 1425 400 Balance 1500 -25 -6 Weight 120 lb Intake: IV Fluids 1500 990 394 LR 1500 990 394 Oral 410 Output: Allen 1425 400 Other: # Bowel Movements 1 1 2 Estimated Stool Amount Medium Medium Small Laboratory Tests 08/10/19 05:47 WBC 10.3 PEX Gen: NAD Chest:CTA CVS:RRR Abd:soft, nd/nt Incision: dressing C/D/I Ext:calves soft B/L [] Assessment:78 yo female POD 1 S/P open repair of incarcerated LIH. Loose stool, pre op CT showed colon full of stool [] Plan: SCD'S, encouraged deep breathing, Full liqid diet, D/C Allen, PO analgesia , miralax BID, ambulate, Observation []
[2019-08-11] MEDS: oxyCODONE/Acetamin 5/325 MG* TAB PO PRN ×2 (04:55→09:11)
[2019-08-11] MEDS: Heparin VIAL(*) 5000 UNITS/ML VIAL (FIVE THOUSAND) SUBCUT SCH (05:52)
[2019-08-11] MEDS: Polyethylene Glycol 3350* 17 GM PACKET PO SCH (07:31)
[2019-08-11] MEDS: Lisinopril TAB* 5 MG PO SCH (09:10)
[2019-08-11] MEDS: Hydrochlorothiazide TAB* 25 MG PO SCH (09:10)
[2019-08-11] MEDS: Sertraline* 100 MG TAB PO SCH (09:10)
[2019-08-11] MEDS: Pantoprazole TAB * 40 MG TAB PO SCH (09:10)
[2019-08-11 11:18] VITALS: BP 102/45
--- NOTE | 2019-08-11 11:57 | PN ---
Progress Note - Progress Note Date of Service: 08/11/19 Note: Feeling well. BM this morning. Tolerating a regular diet. Minimal pain at incision site. Feels abdomen is much less distended. Vital Signs - 12 hr Temp Pulse Resp BP Pulse Ox 08/11/19 11:17 98 F 62 16 102/45 96 08/11/19 09:11 20 08/11/19 07:36 18 08/11/19 07:35 18 08/11/19 07:28 97.9 F 65 17 107/46 95 08/11/19 04:55 17 08/11/19 03:14 98 F 64 16 146/57 96 General: NAD Abdomen: soft, nontender, nondistended. L groin dressing clean and dry. Incision is soft, no ecchymosis or erythema Neuro: Alert, oriented x3 A&P 78F with incarcerated L inguinal hernia s/p repair POD 2. Doing well. -Regular diet -Percocet as needed for pain -D/c to home today.
--- NOTE | 2019-08-16 20:22 | DS ---
Discharge Summary Surgeon:Sara FREEMAN Admit Date:08/09/2019 Discharge Date:08/11/2019 Admission DX: Incarcerated Left Inguinal Hernia Discharge DX:Same Condition at Discharge:Stable Date of D/C PEX: Chest:CTA CVS:RRR ABD:Soft, ND/NT, groin dressing C/D/I Procedures Performed:Open repair of incarcerated Left Inguinal Hernia with mesh Hospital Course: Patient was admitted through the ED for an incarcerated left inguinal hernia, taken to the OR later that day for operative repair, tolerated the procedure well, was transferred to the PACU and then the Surgical care Unit for post op care. Post op course was uneventful, Patient pain was well controlled with PO analgesia, had several bowel movements, was ambulating well. Discharged home in stable condition on 08/11/2019 Discharge instructions were given to the patient regarding Diet, Medications, Activity, and post operative Follow up. All Questions were answered. Discharged Home in Stable Condition on 08/11/2019
--- NOTE | 2019-08-31 14:12 | OP ---
CC: Primary Care Doctor; [facility] OPERATIVE REPORT: DATE OF OPERATION: 08/09/19 DATE OF : 36 SURGEON: Dr. Diane. BENCH WORKER: GEORGE Vazquez. ANESTHESIA: General. PRE-OP DIAGNOSIS: Strangulated left inguinal hernia. POST-OP DIAGNOSIS: Strangulated left inguinal hernia. OPERATIVE PROCEDURE: Open left inguinal hernia repair with mesh. INDICATIONS: Ms. Pantoja is an 78-year-old female admitted through the emergency room with an incarce rated left inguinal hernia with sigmoid colon and subsequent obstruction. I saw her and evaluated he r soon and made a decision to take her to the OR emergently. I discussed the risks, benefits, and al ternatives of the procedure and the possibility of bowel resection and even potential for colostomy f ormation. The patient agreed to proceed and was marked accordingly. ESTIMATED BLOOD LOSS: Minimal. SPECIMEN: Hernia sac. FLUIDS: 1500 cc of crystalloid. DRAINS: None. DESCRIPTION OF PROCEDURE: The patient was taken to the operating room and placed on the operating ta ble in the supine position. Preoperative antibiotics were given. Sequential devices were placed on bilateral lower extremities. General anesthesia was induced. The patient's groin was then evaluated and the hernia reduced with significant traction. There was minimal evidence of skin changes and th e patient was hemodynamically doing well. The left groin hair was clipped and the area was prepped a nd draped in standard surgical fashion and a time-out was performed. An inguinal incision was made. This was deepened down through Heavenly and Camper fascia down on to th e hernia sac. Hernia sac was isolated medially right up to where it broached the external oblique. The external oblique was incised along the direction of the fibers and flaps were made cephalad with ease, but inferiorly it was somewhat more difficult, taking the hernia sac off the site. Both sharp and blunt dissection was carried out until we could see the shelving edge of the inguinal canal. At this point, we were able to isolate the hernia sac, the round ligament was also identified, and th is was transected. At this point, we just had a large hernia sac with no contents and it was dissect ed right down to the internal ring where we opened up into the hernia sac. There was mild ascitic fl uid that was non-foul smelling. I did not try to evaluate the abdomen proper. The peritoneum was th en pursestringed and dropped back into the abdomen. The sac was sent off as specimen. Next, we irrigated, reviewed the full inguinal floor and then utilized a Bard mesh plug, which was in serted into the internal ring and sutured it to the transversalis fascia superiorly and along the she lving edge of the inguinal canal. We then used a Covidien mesh Parietex and placed this onto the richard or of the inguinal canal and sutured it at the pubic tubercle and also inferiorly. The wound was the n again irrigated. Hemostasis was achieved and layers were reapproximated in standard fashion. The patient tolerated the procedure well and was woken up and transferred to PACU in stable condition. [id number]/[facility] #: [id number]
== END 2019-08-11 12:45 | disposition home or self-care (01) | DRG 352 ==
LOC: ED 08:29 → SSU 16:54
PROVIDERS: ADMIT Surgery; ATTEND Surgery Surgical Critical Care
PROC: 0YU60JZ Supplement Left Inguinal Region with Synthetic Substitute, Open Approach (ICD-10-PCS; principal; 2019-08-09 17:00)
DX: K40.30 Unilateral inguinal hernia, with obstruction, without gangrene, not specified as recurrent (principal); E11.9 Type 2 diabetes mellitus without complications; I10 Essential (primary) hypertension; E78.00 Pure hypercholesterolemia, unspecified; K21.9 Gastro-esophageal reflux disease without esophagitis; M06.9 Rheumatoid arthritis, unspecified; M19.90 Unspecified osteoarthritis, unspecified site; F41.9 Anxiety disorder, unspecified; M48.00 Spinal stenosis, site unspecified; K59.09 Other constipation; Z87.891 Personal history of nicotine dependence
CPT/HCPCS: 36415; 74177; 80053; 83605; 85025; 85610; 85730; 86140; 88302; 93005; 96374; 96375; 99284; A9270-GY; C1781; J1100; J1170; J1335; J1644; J2250; J2270; J2405; J2704; J3010; Q9967

== ENCOUNTER 2020-04-10 06:29 | Observation (INO) ==
[~2020-04-10 06:29] MED LIST changes: -Buffered Lidocaine 0.9% SYRIN* 5 ML/SYR SYRINGE INTRADERM ONE; +Buffered Lidocaine 1% SYRIN 1 ml INTRADERM ONE; -Dexamethasone TAB* 6 MG PO ONE; +Famotidine IV 10 MG/ML 2 ml VIAL (20 mg) IV ONE; -Famotidine IV* 10 MG/ML 2 ML (20 mg) IV ONE; +Lactated Ringers 1000 ml BAG 1,000 ML IV SCH; -Ondansetron INJ* 2 MG/ML VIAL ONE
[2020-04-10] MEDS ORDERED: Famotidine IV 10 MG/ML 2 ml VIAL (20 mg) ONE (07:11)
[2020-04-10] MEDS ORDERED: ceFAZolin 2 GM PREMIX 2 GM/50 ML BAG ONE (07:11)
[2020-04-10] MEDS ORDERED: Buffered Lidocaine 1% SYRIN 1 ml INTRADERM ONE (07:11)
[2020-04-10] MEDS ORDERED: ROPIVACAINE 5 MG/ML 30 ML BTL (0.5%) ONE ×2 (07:53→09:45)
[2020-04-10] MEDS ORDERED: Midazolam 2 mg/2 ml VIAL 1 mg/ml 2 ml VIAL (2 mg) ONE (08:24)
[2020-04-10] MEDS ORDERED: fentaNYL 100 mcg/2 ml 50 MCG/ML VIAL ONE (08:24)
[2020-04-10] MEDS ORDERED: Propofol 10 MG/ML 20 ML BTL ONE (08:51)
[2020-04-10] MEDS ORDERED: Lidocaine 2% PF 5 ML VIAL ONE (08:52)
[2020-04-10] MEDS ORDERED: Ondansetron 4 mg VIAL 2 MG/ML 2 ml VIAL ONE ×2 (08:52→11:11)
[2020-04-10] MEDS ORDERED: Naloxone 0.4 mg VIAL 0.4 mg/ml 1 ml VIAL IV PRN (10:02)
[2020-04-10] MEDS ORDERED: Dexamethasone IV 4 MG/ML VIAL 1 ml VIAL ONE (11:11)
[2020-04-10] MEDS ORDERED: Acetaminophen IV 1 GM/100ML 100 ML ONE (11:11)
[2020-04-10] MEDS ORDERED: Ondansetron ODT 4 mg TAB 4 MG TAB PO PRN (11:30)
[2020-04-10] MEDS ORDERED: diPHENhydraMINE 25 mg TAB PO PRN (11:30)
[2020-04-10] MEDS ORDERED: Morphine 2 MG/ML SYRINGE IV PRN (11:30)
[2020-04-10] MEDS ORDERED: Ondansetron 4 mg VIAL 2 MG/ML 2 ml VIAL IV PRN (11:30)
[2020-04-10] MEDS ORDERED: Magnesium Hydroxide LIQ 30 ML UDC PO PRN (11:30)
[2020-04-10] MEDS ORDERED: diPHENhydraMINE IV 50 MG/ML 1 ml VIAL (BENADRYL) IV PRN (11:30)
[2020-04-10] MEDS ORDERED: Lactulose 30 ml UDC PO PRN (11:30)
[2020-04-10] MEDS ORDERED: Morphine 4 MG/ML VIAL (1 ml) ONE ×3 (11:33→12:30)
[2020-04-10] MEDS: Morphine 4 MG/ML VIAL (1 ml) IV PRN ×5 (11:34→12:31)
[2020-04-10] MEDS: oxyCODONE/Acetamin 5/325 mg TAB PO PRN ×2 (14:31→20:02)
[2020-04-10] MEDS: Lactated Ringers 1000 ml BAG 1,000 ML IV SCH (14:36)
[2020-04-10] MEDS: ceFAZolin 1 GM ADVAN 1 GM in NS 0.9% 50 ML 50 ML IVPB SCH (17:11)
[2020-04-10] MEDS: Magnesium Hydroxide LIQ 30 ML UDC PO SCH (20:03)
[2020-04-10] MEDS: Morphine ER 30 mg TAB ** extended release PO SCH (22:39)
[2020-04-11] MEDS: Lactated Ringers 1000 ml BAG 1,000 ML IV SCH (00:30)
[2020-04-11] MEDS: ceFAZolin 1 GM ADVAN 1 GM in NS 0.9% 50 ML 50 ML IVPB SCH ×2 (01:01→08:52)
[2020-04-11] MEDS: oxyCODONE/Acetamin 5/325 mg TAB PO PRN ×2 (03:40→07:55)
[2020-04-11 04:56] LABS: Hematocrit 30 % (35-47); Hemoglobin 9.9 g/dL (12.0-16.0); Mean Platelet Volume 6.8 fL (7.4-10.4); Platelet Count 246 10^3/uL (150-450)
[2020-04-11 05:12] LABS: BUN/Creatinine Ratio 24.4 (8-20); Calcium 8.6 mg/dL (8.6-10.3); EGFR Non-African American 66.9 (>60); Potassium 3.9 mmol/L (3.5-5.0)
[2020-04-11] MEDS: Morphine ER 30 mg TAB ** extended release PO SCH (08:48)
[2020-04-11] MEDS: Magnesium Hydroxide LIQ 30 ML UDC PO SCH (08:50)
[2020-04-11] MEDS ORDERED: Vitamin THERAPEUTIC TAB PO SCH (09:00)
[2020-04-11 11:38] VITALS: BP 151/56
== END 2020-04-11 14:00 | disposition home or self-care (01) ==
LOC: AA 06:29 → INTOOBSV 06:29 → SSU 13:56
PROVIDERS: ADMIT Orthopaedic Surgery Adult Reconstructive Orthopaedic Surgery; ATTEND Orthopaedic Surgery Adult Reconstructive Orthopaedic Surgery